=== PATIENT | female | born 1975 | race Caucasian/White ===

== ENCOUNTER 2020-03-31 14:04 | Emergency (ER) | payer OTHER, SELFPAY ==
[2020-03-31] VITALS (7 sets, daily range): BP systolic 137–151; BP diastolic 71–85; PULSE 89–113; RESP 15; TEMP 37.1; O2SAT 97–100; BMI 22.3
[2020-03-31] MEDS: ONDANSETRON 4 MG/2 ML INJ (16:57)
[2020-03-31] MEDS: SODIUM CHLORIDE 0.9% 1,000 ML 1000 ML IV (16:58)
--- NOTE | 2020-03-31 17:16 | ED_ITS ---
HPI - Ear Problem General Chief complaint: Ear Stated complaint: sick for 2 mos, neg covid, poss mono, nausea Time Seen by Provider: 03/31/20 17:14 Source: patient Mode of arrival: Ambulatory Limitations: no limitations History of Present Illness HPI Narrative: This is a 44-year-old female comes emergency department occult complaint of 2 months of symptoms, she states she has had loss of smell and taste, she states she has had 5-COVID test. She states she is possibly positive for mono. She was told she was then, was not then, was and followed by was not. Patient states she has had no fevers or chills. She has had some nasal congestion and left cheek pain. She has not had any swelling or redness. She has had pain in both her ears. She has had a hoarse voice. She has not had any chest pain or pressure but has been short of breath intermittently. She has had nausea and vomiting most days. No diarrhea or constipation. No black or bloody stools. No frequency, dysuria urgency. No vaginal bleeding or discharge. She is not currently on any medications regularly. She denies any recent surgeries. She has multiple antibiotic allergies. Positive for tobacco use, positive for several alcoholic drinks daily, positive for THC, negative for other recreational drugs. Related Data Home Medications Medication Instructions Recorded Confirmed ACETAMINOPHEN (susp) (CHILDREN'S 480 mg #0 02/26/12 TYLENOL) [UNKNOWN EYE DROP] #0 02/26/12 Previous Rx's Medication Instructions Recorded acetaminophen-codeine 5 - 10 ml PO Q6HP PRN #30 ml 12/04/16 tramadol 50 mg PO TID PRN #7 tab 03/31/20 Allergies Allergy/AdvReac Type Severity Reaction Status Date / Time amoxicillin [From AUGMENTIN] Allergy Unknown Verified 03/31/20 14:11 cephalexin [CEPHALEXIN] Allergy Unknown Verified 03/31/20 14:11 clavulanic acid Allergy Unknown Verified 03/31/20 14:11 [From AUGMENTIN] Penicillins [PENICILLINS] Allergy Unknown Verified 03/31/20 14:11 Sulfa (Sulfonamide Allergy Unknown Verified 03/31/20 14:11 Antibiotics) [SULFA (SULFONAMIDE ANTIBIOTICS)] Review of Systems Review of Systems ROS Unobtainable: All systems reviewed & are unremarkable except as noted in HPI and below Patient History Social History Smoking Status: Current every day smoker Smoking Status: Current every day smoker alcohol intake frequency: 3 or more drinks per day Substance Use Type: does not use Exam Narrative Exam Narrative: GEN: well nourished, well appearing female, alert and oriented x 3, patient appears to be in mild distress. HEENT: Atraumatic, pupils are equal round reactive to light, extraocular movements are intact, nares are clear, TMs are clear with no fluid, there is no conjunctival pallor. Throat is clear without any exudates, erythema, tonsillar enlargement or uvular deviation HEART: Regular rate and rhythm without murmur, clicks, rubs. LUNGS:Lungs clear to auscultation, no wheezes, rales, crackles, chest moves symmetrically ABD:bowel sounds normal, soft, positive for mild moderate left upper quadrant tenderness, no guarding, rebound, rigidity, no masses noted, no hepatosplenomegaly, nondistended. :No CVA tenderness MSCL: Non-tender, no muscle atrophy, muscles strength 5/5 upper and lower ex tremities, full range of motion, normal gait NEURO:CN 2-12 intact, sensation normal SKIN: Rash, erythema or other skin changes noted Initial Vital Signs Initial Vital Signs: Vital Signs Temperature 98.7 F 03/31/20 14:11 Pulse Rate 113 H 03/31/20 14:11 Respiratory Rate 15 03/31/20 14:11 Blood Pressure 137/85 03/31/20 14:11 Pulse Oximetry 97 03/31/20 14:11 Course Orders Ordered: ED Orders 03/31/20 16:51 Complete Blood Count AUTO DIFF Stat Comprehensive Metabolic Panel Stat Lipase Stat 03/31/20 17:35 US abdomen complete Stat 03/31/20 17:39 XR chest 1V Stat 03/31/20 18:48 Hepatitis Acute Panel Stat Urine Microscopic Stat Discontinued Medications Acetaminophen/Codeine Phosphate (Codeine/Acetaminophen 30/300 Tablet) 1 tab PO NOW ONE Stop: 03/31/20 17:37 Last Admin: 03/31/20 18:05 Dose: 1 tab Documented by: AUDREY Sodium Chloride (Normal Saline 0.9%) 1,000 mls @ 1,000 mls/hr IV BOLUS ONE Stop: 03/31/20 17:57 Last Infusion: 03/31/20 17:59 Dose: 0 mls/hr Documented by: Admin: 03/31/20 16:58 Dose: 1,000 mls/hr Documented by: AUDREY Potassium Chloride (Potassium Chloride 20 Meq/15 Ml Udc) 40 meq PO NOW ONE Stop: 03/31/20 18:38 Last Admin: 03/31/20 19:12 Dose: 40 meq Documented by: PATEL Vital Signs Vital signs: Vital Signs - 8 hr 03/31/20 14:11 03/31/20 16:34 03/31/20 16:35 Temperature 98.7 F Pulse Rate 113 H Respiratory Rate 15 Blood Pressure 137/85 149/77 H Pulse Oximetry 97 98 03/31/20 17:00 03/31/20 17:04 03/31/20 17:30 Temperature Pulse Rate 99 H 92 H 89 Respiratory Rate Blood Pressure 151/71 H Pulse Oximetry 97 98 99 03/31/20 18:02 Temperature Pulse Rate 93 H Respiratory Rate Blood Pressure Pulse Oximetry 100 Medical Decision Making Lab Data Lab results reviewed: Yes I reviewed the patient's lab results. Result diagrams: 03/31/20 16:51 03/31/20 16:51 Labs: Lab Results 03/31/20 03/31/20 03/31/20 Range/Units 16:51 16:51 18:48 WBC 6.0 (4.5-11.0) X10^3/uL RBC 4.23 (4.0-5.2) X10^6/uL Hgb 14.3 (12.0-16.0) g/dL Hct 42.5 (36-46) % MCV 100.4 H (80-100) fL MCH 33.8 (26-34) PG MCHC 33.7 (30-36) % RDW 14.1 (11.6-14.8) % Plt Count 107 L (150-400) X10^3/uL Neut % (Auto) 64.6 (50-75) % Lymph % (Auto) 26.2 (25-40) % [place] % (Auto) 8.4 (3-14) % Eos % (Auto) 0.4 L (2-4) % Baso % (Auto) 0.4 (0-2) % Neut # (Auto) 3900 (3719-1030) /uL Lymph # (Auto) 1600 (9508-6882) /uL [place] # (Auto) 500 (0-900) /uL Eos # (Auto) 0 (0-450) /uL Baso # (Auto) 0 (0-100) /uL Sodium 137 (137-145) mmol/L Potassium 3.1 L (3.4-5.1) mmol/L Chloride 96 L (98-107) mmol/L Carbon Dioxide 30 (22-32) mmol/L BUN 11 (7-17) mg/dL Creatinine 0.63 (0.52-1.04) mg/dL Estimated GFR > 60.0 (>60) mL/min BUN/Creatinine Ratio 17.5 (6-22) Glucose 140 H (70-100) mg/dL Calcium 9.7 (8.4-10.2) mg/dL Total Bilirubin 0.8 (0.2-1.3) mg/dL AST 507 H (14-36) IU/L ALT 269 H (<35) IU/L Alkaline Phosphatase 124 (38-126) U/L Total Protein 7.7 (6.3-8.2) g/dL Albumin 4.7 (3.5-5.0) g/dL Globulin 3.0 (1.7-4.1) g/dL Albumin/Globulin Ratio 1.6 (1.0-2.8) Lipase 180 (23-300) U/L Urine RBC 10-30/hpf H (0-5/HPF) Urine WBC 1-5/hpf (0-5/HPF) Ur Squamous Epith Cells 10-30 /hpf H (0-5/HPF) Urine Bacteria None seen (None) Urine Mucus 2+ H (Negative) Ur Culture Indicated? Cult not indicated Point of Care Testing Test Results Negative Urine Dip Bedside Urine Glucose Negative Bedside Urine Bilirubin - Negative Bedside Urine Ketone + 15 Urine Specific [place] 1.015 Bedside Urine Occult Blood +++ Bedside Urine pH 7 Bedside Urine Protein ++ 100 Bedside Urine Urobilinogen +/- 1mg Bedside Urine Nitrite - Negative Bedside Urine Leukocytes - Negative Esterase Point of care testing: Point of Care Testing Test Results Negative Urine Dip Bedside Urine Glucose Negative Bedside Urine Bilirubin - Negative Bedside Urine Ketone + 15 Urine Specific [place] 1.015 Bedside Urine Occult Blood +++ Bedside Urine pH 7 Bedside Urine Protein ++ 100 Bedside Urine Urobilinogen +/- 1mg Bedside Urine Nitrite - Negative Bedside Urine Leukocytes - Negative Esterase Imaging Data Chest x-ray: Radiologist's Impression: [address] [id number] ReportSigned Patient: Yaneth Swan R#: [id number]: 1975Acct:[id number]/Sex: 44 / FDate of Service: 03/31/20Loc: EDAccession Number: [id number] Procedure: XR chest 1V Ordering Provider: Veronica Gutiérrez D.O. PROCEDURE: XR CHEST 1V INDICATIONS: cough, multiple symptoms TECHNIQUE: One view of the chest was acquired. COMPARISON: None. FINDINGS: Surgical changes and devices: None. Lungs and pleura: Lungs are clear. No pleural effusions or pneumothorax. Mediastinum: Mediastinal contours appear normal. Heart size is normal. Bones and chest wall: No suspicious bony lesions. Overlying soft tissues appear unremarkable. IMPRESSION: No acute process. Dictated by: Angeli Jiménez M.D. on 03/31/2020 at 18:18 Approved by: Angeli Jiménez M.D. on 03/31/2020 at 18:18 US - abdomen: Radiologist's Impression: [address] [id number] ReportSigned Patient: Yaneth Swan R#: [id number]: 1975Acct:[id number]/Sex: 44 / FDate of Service: 03/31/20Loc: EDAccession Number: [id number] Procedure: US abdomen complete Ordering Provider: Veronica Gutiérrez D.O. PROCEDURE: US ABDOMEN COMPLETE INDICATIONS: ABDOMINAL/LEFT UPPER QUADRANT PAIN WITH NAUSEA. RECENT MONO. TECHNIQUE: Real-time scanning was performed of the abdominal and retroperitoneal organs, with image documentation. COMPARISON: None. FINDINGS: Liver: Liver is normal in size and demonstrates heterogeneously increased echogenicity. Gallbladder: Within normal limits Biliary ducts: Intrahepatic bile ducts are non-dilated. Extrahepatic bile duct caliber measures point mm. Normal is 6-7 mm or less in diameter, or 10 mm or less post-cholecystectomy. Pancreas: Not well seen Spleen: Spleen is normal in size and homogeneous in echotexture. Kidneys: Kidneys are normal in size and echotexture. Right kidney measures 12.4 cm long; left kidney measures 10.2 cm long. No hydronephrosis or nephrolithiasis. No solid masses. Aorta: Visualized aorta is normal in caliber at less than 3 cm. Iliacs: Proximal common iliac arteries are normal in caliber at less than 2.5 cm. IVC: Intrahepatic inferior vena cava is patent. Miscellaneous: No free abdominal fluid. IMPRESSION: 1. No acute process. 2. Hepatic steatosis. Dictated by: Angeli Jiménez M.D. on 03/31/2020 at 18:22 Approved by: Angeli Jiménez M.D. on 03/31/2020 at 18:23 Discharge Plan Departure Patient Disposition: Home Clinical Impression: Hypokalemia, Elevated liver enzymes Activity Restrictions/Additional Instructions: Follow up with primary care physician for recheck. Your potassium was slightly low today, it was replaced here in the emergency department. Your labs show an elevation of your liver enzymes, this may be related to alcohol intake. Hepatitis panel was ordered screening for infectious hepatitis causes but this is a send out lab and will take 1-2 days to return. There are some changes noted on your liver which may be hepatic steatosis or related to your alcohol intake. Would recommend decreasing or stopping alcohol use until you follow up with your physician to clarify your findings. Return to the ER for fevers, persistent vomiting, black or bloody stools, passing, new chest pain, shortness of breath or other new or concerning symptoms. Prescriptions: New tramadol 50 mg tablet 50 mg PO TID PRN (Reason: pain) Qty: 7 RF: 0 No Action [UNKNOWN EYE DROP] Qty: 0 RF: 0 ACETAMINOPHEN (susp) (CHILDREN'S TYLENOL) 480 mg Qty: 0 RF: 0 acetaminophen-codeine 120 MG/12 MG solution 5 - 10 ml PO Q6HP PRNQty: 30 RF: 0
--- NOTE | 2020-03-31 17:35 | DI.US.S_ITS ---
PROCEDURE: US ABDOMEN COMPLETE INDICATIONS: ABDOMINAL/LEFT UPPER QUADRANT PAIN WITH NAUSEA. RECENT MONO. TECHNIQUE: Real-time scanning was performed of the abdominal and retroperitoneal organs, with image documentation. COMPARISON: None. FINDINGS: Liver: Liver is normal in size and demonstrates heterogeneously increased echogenicity. Gallbladder: Within normal limits Biliary ducts: Intrahepatic bile ducts are non-dilated. Extrahepatic bile duct caliber measures point mm. Normal is 6-7 mm or less in diameter, or 10 mm or less post-cholecystectomy. Pancreas: Not well seen Spleen: Spleen is normal in size and homogeneous in echotexture. Kidneys: Kidneys are normal in size and echotexture. Right kidney measures 12.4 cm long; left kidney measures 10.2 cm long. No hydronephrosis or nephrolithiasis. No solid masses. Aorta: Visualized aorta is normal in caliber at less than 3 cm. Iliacs: Proximal common iliac arteries are normal in caliber at less than 2.5 cm. IVC: Intrahepatic inferior vena cava is patent. Miscellaneous: No free abdominal fluid. IMPRESSION: 1. No acute process. 2. Hepatic steatosis. Dictated by: Angeli Jiménez M.D. on 03/31/2020 at 18:22 Approved by: Angeli Jiménez M.D. on 03/31/2020 at 18:23
--- NOTE | 2020-03-31 17:39 | DI.RAD.S_ITS ---
PROCEDURE: XR CHEST 1V INDICATIONS: cough, multiple symptoms TECHNIQUE: One view of the chest was acquired. COMPARISON: None. FINDINGS: Surgical changes and devices: None. Lungs and pleura: Lungs are clear. No pleural effusions or pneumothorax. Mediastinum: Mediastinal contours appear normal. Heart size is normal. Bones and chest wall: No suspicious bony lesions. Overlying soft tissues appear unremarkable. IMPRESSION: No acute process. Dictated by: Angeli Jiménez M.D. on 03/31/2020 at 18:18 Approved by: Angeli Jiménez M.D. on 03/31/2020 at 18:18
[2020-03-31 17:51] LABS: Add Manual Diff / Slide Review NO; Basophils Absolute Auto 0 /uL (0-100); Basophils Percent Auto 0.4 % (0-2); Eosinophils Absolute Auto 0 /uL (0-450); Eosinophils Percent Auto 0.4 % (2-4); Hematocrit 42.5 % (36-46); Hemoglobin 14.3 g/dL (12.0-16.0); Lymphocytes Absolute Auto 1600 /uL (1100-4500); Lymphocytes Percent Auto 26.2 % (25-40); Mean Corpuscular HGB Conc 33.7 % (30-36); Mean Corpuscular Hemoglobin 33.8 PG (26-34); Mean Corpuscular Volume 100.4 fL (80-100); Monocytes Absolute Auto 500 /uL (0-900); Monocytes Percent Auto 8.4 % (3-14); Neutrophils Absolute Auto 3900 /uL (1500-7000); Neutrophils Percent Auto 64.6 % (50-75); Platelet Count 107 X10^3/uL (150-400); Red Blood Cell Count 4.23 X10^6/uL (4.0-5.2); Red Cell Distribution Width 14.1 % (11.6-14.8)
[2020-03-31] MEDS: CODEINE/ACETAMINOPHEN 30/300 TABLET 1 TAB PO (18:05)
[2020-03-31 18:13] LABS: Alanine Aminotransferase 269 IU/L (<35); Albumin 4.7 g/dL (3.5-5.0); Albumin Globulin Ratio 1.6 (1.0-2.8); Alkaline Phosphatase 124 U/L (38-126); Aspartate Aminotransferase 507 IU/L (14-36); BUN Creatinine Ratio 17.5 (6-22); Bilirubin Total 0.8 mg/dL (0.2-1.3); Blood Urea Nitrogen 11 mg/dL (7-17); Calcium 9.7 mg/dL (8.4-10.2); Carbon Dioxide 30 mmol/L (22-32); Chloride 96 mmol/L (98-107); Estimated Glomerular Filt Rate > 60.0 mL/min (>60); Glucose 140 mg/dL (70-100); HEMOLYSIS < 15 (0-50); Lipase 180 U/L (23-300); Potassium 3.1 mmol/L (3.4-5.1); Sodium 137 mmol/L (137-145); Total Protein 7.7 g/dL (6.3-8.2)
[2020-03-31] MEDS: POTASSIUM CHLORIDE 20 MEQ/15 ML UDC 40 MEQ PO (19:12)
[2020-03-31 19:19] LABS: Bacteria Urine None Seen
[2020-03-31 19:45] LABS: Culture Indicated Urine Cult Not Indicated; Mucus Urine 2+ (Negative); RBC Urine 10-30/HPF (0-5/HPF); Squamous Epithelial Cell Urine 10-30 /HPF (0-5/HPF); WBC Urine 1-5/HPF (0-5/HPF)
[2020-04-02 12:42] LABS: HBsAg Screen Negative (Negative); Hepatitis A Antibody IgM Negative (Negative); Hepatitis B Core Antibody IgM Negative (Negative); Hepatitis C Antibody 0.1 s/co ratio (0.0-0.9)
== END 2020-03-31 19:23 | disposition home or self-care (01) ==
PROVIDERS: Emergency Provider Emergency Medicine
DX: E87.6 Hypokalemia (principal); R10.12 Left upper quadrant pain; R74.8 Abnormal levels of other serum enzymes; R11.2 Nausea with vomiting, unspecified; R05 Cough; Z72.0 Tobacco use; F12.90 Cannabis use, unspecified, uncomplicated; Z72.89 Other problems related to lifestyle
CPT/HCPCS: 71045; 76700; 80053; 80074; 81003; 81015; 81025; 83690; 85025; 96361; 96374; 99284; J2405

== ENCOUNTER 2021-08-09 16:10 | Emergency (ER) | payer OTHER, SELFPAY ==
[2021-08-09 16:27] VITALS: BP 153/68; PULSE 61; RESP 16; TEMP 36.7; O2SAT 99; BMI 22.3
[2021-08-09 17:32] LABS: Alanine Aminotransferase 96 IU/L (<35)
--- NOTE | 2021-08-09 17:46 | ED_ITS ---
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 Patient denies any significant pain to the thumb or loss of function states that she was advised by her employer to come to the emergency department for lab work. Denies any fevers, spreading redness, decreased mobility, or any other co ncerning signs or symptoms. Patient is unsure of the medical history of the patient who blood she was exposed to. Related Data Home Medications Medication Instructions Recorded Confirmed ACETAMINOPHEN (susp) (CHILDREN'S 480 mg #0 02/26/12 TYLENOL) [UNKNOWN EYE DROP] #0 02/26/12 Previous Rx's Medication Instructions Recorded acetaminophen 120 mg-codeine 12 5 - 10 ml PO Q6HP PRN #30 ml 12/04/16 mg/5 mL (5 mL) oral solution tramadol 50 mg tablet 50 mg PO TID PRN #7 tab 03/31/20 Allergies Allergy/AdvReac Type Severity Reaction Status Date / Time amoxicillin [From AUGMENTIN] Allergy Unknown Verified 08/09/21 16:33 cephalexin [CEPHALEXIN] Allergy Unknown Verified 08/09/21 16:33 clavulanic acid Allergy Unknown Verified 08/09/21 16:33 [From AUGMENTIN] Penicillins [PENICILLINS] Allergy Unknown Verified 08/09/21 16:33 Sulfa (Sulfonamide Allergy Unknown Verified 08/09/21 16:33 Antibiotics) [SULFA (SULFONAMIDE ANTIBIOTICS)] Review of Systems <SUSANNA Dalal Last Filed: 08/09/21 19:33> Review of Systems Narrative: Positive for left thumb pain Negative for discharge, decreased mobility Patient History <SUSANNA Dalal Last Filed: 08/09/21 19:33> Social History Smoking Status: Current every day smoker Smoking Status: Current every day smoker alcohol intake frequency: a few times a week Substance Use Type: does not use Exam <SUSANNA Dalal Last Filed: 08/09/21 19:33> Narrative Exam Narrative: GENERAL: Well-developed patient, in mild distress. HEAD: Atraumatic. Normocephalic. EYES: Pupils equal round and reactive. Extraocular motions intact. No scleral icterus. No injection or drainage. ENT: Nose without bleeding, purulent drainage. Throat without erythema, tonsillar hypertrophy or exudate. Airway patent. NECK: Trachea midline. Non tender CARDIOVASCULAR: Regular rate and rhythm without murmurs, gallops, or rubs. RESPIRATORY: Clear to auscultation. Breath sounds equal bilaterally. No wheezes, rales, or rhonchi. GASTROINTESTINAL: Abdomen soft, non-tender, nondistended. EXTREMITIES: No edema or joint tenderness. BACK: Nontender without deformity or crepitance. No flank tenderness. NEURO: AOx3. SKIN: Very small pinprick injury to left palmar aspect of thumb. Initial Vital Signs Initial Vital Signs: Vital Signs Temperature 98.0 F 08/09/21 16:27 Pulse Rate 61 08/09/21 16:27 Respiratory Rate 16 08/09/21 16:27 Blood Pressure 153/68 H 08/09/21 16:27 Pulse Oximetry 99 08/09/21 16:27 <DO Halle Petersen Last Filed: 08/10/21 09:06> Initial Vital Signs Initial Vital Signs: Vital Signs Temperature 98.0 F 08/09/21 16:27 Pulse Rate 61 08/09/21 16:27 Respiratory Rate 16 08/09/21 16:27 Blood Pressure 153/68 H 08/09/21 16:27 Pulse Oximetry 99 08/09/21 16:27 Course <SUSANNA Dalal Last Filed: 08/09/21 19:33> Vital Signs Vital signs: Vital Signs - 8 hr 08/09/21 16:27 Temperature 98.0 F Pulse Rate 61 Respiratory Rate 16 Blood Pressure 153/68 H Pulse Oximetry 99 <DO Halle Petersen Last Filed: 08/10/21 09:06> Vital Signs Vital signs: Vital Signs - 8 hr 08/09/21 16:27 Temperature 98.0 F Pulse Rate 61 Respiratory Rate 16 Blood Pressure 153/68 H Pulse Oximetry 99 Medical Decision Making <SUASNNA Dalal Last Filed: 08/09/21 19:33> Lab Data Labs: Lab Results 08/09/21 08/09/21 Range/Units 16:50 16:50 ALT 96 H (<35) IU/L Hep Bs Antigen Negative (NEGATIVE) s/c Hepatitis C Antibody Negative (NEGATIVE) s/c HIV 1&2 Ab/P24 Ag 4thGn Negative (NEGATIVE) MDM Narrative Medical decision making narrative: This is a 45-year-old female presents to the emergency department due to a needlestick injury. Exposure panel ordered. Shared decision making was utilized and informed patient of low likelihood of blood borne illness transmission due to nature of injury and patient declined HIV prophylaxis or other treatment at this time. Patient was eager to go home and will call patient with results of testing once available which were all negative and patient was informed. Liver enzymes elevated although appears to be improved and chronic. <Mai Keen, DO - Last Filed: 08/10/21 09:06> Lab Data Labs: Lab Results 08/09/21 08/09/21 Range/Units 16:50 16:50 ALT 96 H (<35) IU/L Hep Bs Antigen Negative (NEGATIVE) s/c Hepatitis C Antibody Negative (NEGATIVE) s/c HIV 1&2 Ab/P24 Ag 4thGn Negative (NEGATIVE) Discharge Plan Departure Patient Disposition: Home Clinical Impression: Needlestick injury accident Instructions: DI for Accidental Exposure to Body Fluids Activity Restrictions/Additional Instructions: Thank you for coming to the [facility] Emergency Department today. As we di scussed I will call you if any of your lab work comes back abnormal. I am sorry that this happened to you. As we discussed the sides of you yana and blood borne illness or very low with this kind of injury. You may follow-up with the primary care provider if you become interested in any kind of treatment. I recommended to attempt to follow-up with the patient whose body fluid your exposed to to check if they have any kind of blood borne diseases. You May contact the emergency department if she needs any of your results in paper form. I hope you feel better soon. Prescriptions: No Action [UNKNOWN EYE DROP] Qty: 0 0RF ACETAMINOPHEN (susp) (CHILDREN'S TYLENOL) 480 mg Qty: 0 0RF acetaminophen-codeine 120 MG/12 MG solution 5 - 10 ml PO Q6HP PRNQty: 30 0RF tramadol 50 mg tablet 50 mg PO TID PRN (Reason: pain) Qty: 7 0RF <Mai Keen, DO - Last Filed: 08/10/21 09:06> Cosign ED Attending Cosignature Attestation: I was immediately available in the department for consultation. Documentation has been reviewed. I agree with assessment and plan.
[2021-08-09 18:07] LABS: Hepatitis B Surface Antigen NEGATIVE s/c (NEGATIVE)
[2021-08-09 18:30] LABS: HIV 1 & 2 Ab/Ag 4th Gen Combo NEGATIVE (NEGATIVE); Hep C Virus Ab w/Reflex Quant NEGATIVE s/c (NEGATIVE)
[2021-08-11 12:31] LABS: Hepatitis B Surf Ab Qualitativ Reactive (.)
== END 2021-08-09 18:05 | disposition home or self-care (01) ==
PROVIDERS: Emergency Medicine; Emergency Provider Physician Assistant Medical
DX: Z77.21 Contact with and (suspected) exposure to potentially hazardous body fluids (principal); S69.92XA Unspecified injury of left wrist, hand and finger(s), initial encounter; W46.1XXA Contact with contaminated hypodermic needle, initial encounter; Y99.0 Civilian activity done for income or pay
CPT/HCPCS: 36415; 84460; 86706; 86803; 87340; 87389; 99281; 99283

== ENCOUNTER 2021-12-23 18:08 | Emergency (ER) | payer OTHER, MEDICAID, SELFPAY ==
[2021-12-23] VITALS (10 sets, daily range): BP systolic 101–134; BP diastolic 51–76; PULSE 86–119; RESP 22; TEMP 36.6; O2SAT 91–97
--- NOTE | 2021-12-23 18:34 | ED.ABDPAIN ---
HPI - Abdominal Pain General Chief Complaint: Abdominal Pain Stated Complaint: Can't smell, Hard to breath, multiple COVID test - Time Seen by Provider: 12/23/21 18:23 Source: patient Mode of arrival: Wheelchair History of Present Illness HPI narrative: Patient is a 46-year-old female who denies any medical history but reports a recent stay at [facility] in the ICU without being intubated, records are being requested, presents today with abdominal pain generalized weakness. She feels like her nose is quite congested she can not smell or taste. Her ears keep popping. She denies any headache. She certainly has a hoarse voice, but denies any throat pain. She states that she is not able to eat or drink very much he she is having abdominal pain. She admits to having alcohol use more so than she usually does case she has some depression. She says that she drinks about 6 shots of whiskey throughout the day. But is eating very much. She is having some abdominal pain. She reports decreased urine output. According to our records here in 2020 she also reported loss of taste and smell and had elevated liver enzymes. She complains of lower abdominal pain normal bowel movements no vomiting Related Data Home Medications Medication Instructions Recorded Confirmed ACETAMINOPHEN (susp) (CHILDREN'S 480 mg ##0 02/26/12 TYLENOL) [UNKNOWN EYE DROP] ##0 02/26/12 Previous Rx's Medication Instructions Recorded triamcinolone acetonide 0.1 % 1 applic topical TID #80 grams 09/10/21 topical ointment Allergies Allergy/AdvReac Type Severity Reaction Status Date / Time amoxicillin [From AUGMENTIN] Allergy Unknown Verified 08/09/21 16:33 cephalexin [CEPHALEXIN] Allergy Unknown Verified 08/09/21 16:33 clavulanic acid Allergy Unknown Verified 08/09/21 16:33 [From AUGMENTIN] Penicillins [PENICILLINS] Allergy Unknown Verified 08/09/21 16:33 Sulfa (Sulfonamide Allergy Unknown Verified 08/09/21 16:33 Antibiotics) [SULFA (SULFONAMIDE ANTIBIOTICS)] Review of Systems Review of Systems Narrative: GENERAL: Denies chills, fatigue, malaise, fever, sweats, travel HEENT: Denies sinus pain, ear pain, sore throat, difficulty swallowing, neck pain RESPIRATORY: Denies dyspnea, cough, wheezing, hemoptysis, sputum. CARDIOVASCULAR: Denies chest pain, palpitations, orthopnea, edema GASTROINTESTINAL: Abdominal pain : Denies dysuria, frequency, incontinence, hematuria, urinary retention, flank pain. MUSCULOSKELETAL: Denies weakness, joint pain, or bony pain SKIN: No rash, no erythema, no pruritus NEUROLOGIC: Denies weakness, dizziness, headache, numbness, change in speech, confusion PSYCHIATRIC: No concerning psychosocial issues. 12 point review of systems is negative except for those stated above and HPI Patient History Social History Smoking Status: Current every day smoker Smoking Status: Current every day smoker alcohol intake frequency: 3 or more drinks per day Substance Use Type: does not use Exam Initial Vital Signs Initial Vital Signs: Vital Signs Temperature 97.9 F 12/23/21 18:13 Pulse Rate 119 H 12/23/21 18:13 Respiratory Rate 22 12/23/21 18:13 Blood Pressure 134/73 12/23/21 18:13 Pulse Oximetry 95 12/23/21 18:13 Oxygen Delivery Method 12/23/21 18:13 GENERAL: Alert 42-year-old female appears slightly ulnar HEENT: Head atraumatic,EOMI, pupils reactive, face symmetric, moist mucous membranes CARDIOVASCULAR: Regular rate and rhythm without murmurs, rubs or gallops. RESPIRATORY: Breath sounds equal bilaterally, no wheezes rales or rhonchi. ABDOMEN: Soft, mild lower abdominal pain no guarding no rebound : No CVA tenderness EXTREMITIES: Normal range of motion, no clubbing or edema. Neurovascularly intact NEUROLOGICAL: Alert and oriented x4.Normal gait and speech. SKIN: Warm, dry, no laceration, no petechiae, no rashes or lesions. Course Orders Ordered: ED Orders 12/23/21 18:18 EKG-12 Lead Stat 12/23/21 18:25 Complete Blood Count AUTO DIFF Stat Comprehensive Metabolic Panel Stat ETOH [Ethanol (ETOH)] Stat Lipase Stat Test Serum,Qual Stat 12/23/21 19:19 CT abdomen pelvis w con Stat US abdomen limited Stat 12/23/21 19:43 Urine Drug Screen, Rapid Stat Urine Microscopic Stat Discontinued Medications Sodium Chloride (Normal Saline 0.9%) 1,000 mls @ 150 mls/hr IV CONT MOSES Last Infusion: 12/24/21 00:33 Dose: 0 mls/hr Documented By: Admin: 12/23/21 18:43 Dose: 150 mls/hr Documented By: GIA Pantoprazole Sodium (Pantoprazole 40 Mg Vial) 40 mg IV NOW ONE Stop: 12/23/21 19:20 Last Admin: 12/23/21 19:23 Dose: 40 mg Documented By: GIA Vital Signs Vital signs: Vital Signs - 8 hr 12/23/21 18:13 12/23/21 18:48 12/23/21 18:49 Temperature 97.9 F Pulse Rate 119 H 106 H Respiratory Rate 22 Blood Pressure 134/73 Pulse Oximetry 95 94 95 Oxygen Delivery Method Room Air 12/23/21 18:49 12/23/21 19:00 12/23/21 19:00 Temperature Pulse Rate 95 H Respiratory Rate Blood Pressure 123/76 101/64 Pulse Oximetry 93 Oxygen Delivery Method 12/23/21 19:30 12/23/21 20:50 12/23/21 20:50 Temperature Pulse Rate 92 H 89 Respiratory Rate Blood Pressure 102/51 L Pulse Oximetry 96 93 Oxygen Delivery Method 12/23/21 21:00 12/23/21 21:30 12/23/21 22:00 Temperature Pulse Rate 90 93 H Respiratory Rate Blood Pressure 112/57 L Pulse Oximetry 92 91 Oxygen Delivery Method 12/23/21 22:00 12/23/21 22:30 12/23/21 22:30 Temperature Pulse Rate 97 H 86 Respiratory Rate Blood Pressure 105/58 L Pulse Oximetry 92 97 Oxygen Delivery Method Room Air MDM - Abdominal Pain Differential Diagnosis Differential diagnosis: Likely acute appendicitis, calculus of kidney, diverticulitis, gastroenteritis, pancreatitis and small bowel obstruction Lab Data Result diagrams: 12/23/21 18:25 12/23/21 18:25 Labs: Lab Results 12/23/21 12/23/21 12/23/21 Range/Units 18:25 18:25 18:25 WBC 5.5 (4.5-11.0) X10^3/uL RBC 4.29 (4.0-5.2) X10^6/uL Hgb 15.2 (12.0-16.0) g/dL Hct 43.8 (36-46) % MCV 102.2 H (80-100) fL MCH 35.5 H (26-34) PG MCHC 34.7 (30-36) % RDW 14.1 (11.6-14.8) % Plt Count 168 (150-400) X10^3/uL Neut % (Auto) 43.0 L (50-75) % Lymph % (Auto) 47.4 H (25-40) % [place] % (Auto) 7.3 (3-14) % Eos % (Auto) 0.7 L (2-4) % Baso % (Auto) 1.6 (0-2) % Neut # (Auto) 2400 (1956-9947) /uL Lymph # (Auto) 2600 (6582-6700) /uL [place] # (Auto) 400 (0-900) /uL Eos # (Auto) 0 (0-450) /uL Baso # (Auto) 100 (0-100) /uL Sodium 143 (137-145) mmol/L Potassium 4.0 (3.4-5.1) mmol/L Chloride 101 (98-107) mmol/L Carbon Dioxide 22 (22-32) mmol/L BUN 8 (7-17) mg/dL Creatinine 0.60 (0.52-1.04) mg/dL Estimated GFR > 60 (>60) mL/min BUN/Creatinine Ratio 13.3 (6-22) Glucose 99 (70-100) mg/dL Calcium 9.2 (8.4-10.2) mg/dL Total Bilirubin 1.1 (0.2-1.3) mg/dL AST 269 H (14-36) IU/L ALT 116 H (<35) IU/L Alkaline Phosphatase 198 H (38-126) U/L Total Protein 8.8 H (6.3-8.2) g/dL Albumin 5.1 H (3.5-5.0) g/dL Globulin 3.7 (1.7-4.1) g/dL Albumin/Globulin Ratio 1.4 (1.0-2.8) Lipase 104 (23-300) U/L Serum , Qual (Negative) Urine RBC (0-5/HPF) Urine WBC (0-5/HPF) Ur Squamous Epith Cells (0-5/HPF) Urine Bacteria (None) Ur Culture Indicated? U Opiates 300ng/mL cut (Negative) Ur Oxycodone Screen (Negative) Urine Methadone Screen (Negative) Ur Barbiturates Screen (Negative) U Tricyclic Antidepress (Negative) Ur Phencyclidine Scrn (Negative) Ur Amphetamines Screen (Negative) U Methamphetamines Scrn (Negative) Ur MDMA Scrn (Ecstasy) (Negative) U Benzodiazepines Scrn (Negative) Urine Cocaine Screen (Negative) U Marijuana (THC) Screen (Negative) Ethyl Alcohol 419 H* ( - 10) mg/dL 12/23/21 12/23/21 12/23/21 Range/Units 18:25 19:43 19:43 WBC (4.5-11.0) X10^3/uL RBC (4.0-5.2) X10^6/uL Hgb (12.0-16.0) g/dL Hct (36-46) % MCV (80-100) fL MCH (26-34) PG MCHC (30-36) % RDW (11.6-14.8) % Plt Count (150-400) X10^3/uL Neut % (Auto) (50-75) % Lymph % (Auto) (25-40) % [place] % (Auto) (3-14) % Eos % (Auto) (2-4) % Baso % (Auto) (0-2) % Neut # (Auto) (1356-1460) /uL Lymph # (Auto) (1967-1754) /uL [place] # (Auto) (0-900) /uL Eos # (Auto) (0-450) /uL Baso # (Auto) (0-100) /uL Sodium (137-145) mmol/L Potassium (3.4-5.1) mmol/L Chloride (98-107) mmol/L Carbon Dioxide (22-32) mmol/L BUN (7-17) mg/dL Creatinine (0.52-1.04) mg/dL Estimated GFR (>60) mL/min BUN/Creatinine Ratio (6-22) Glucose (70-100) mg/dL Calcium (8.4-10.2) mg/dL Total Bilirubin (0.2-1.3) mg/dL AST (14-36) IU/L ALT (<35) IU/L Alkaline Phosphatase (38-126) U/L Total Protein (6.3-8.2) g/dL Albumin (3.5-5.0) g/dL Globulin (1.7-4.1) g/dL Albumin/Globulin Ratio (1.0-2.8) Lipase (23-300) U/L Serum , Qual Negative (Negative) Urine RBC 1-5/hpf D (0-5/HPF) Urine WBC 0-1/hpf (0-5/HPF) Ur Squamous Epith Cells 5-10 /hpf H (0-5/HPF) Urine Bacteria None seen (None) Ur Culture Indicated? Cult not indicated U Opiates 300ng/mL cut Negative (Negative) Ur Oxycodone Screen Negative (Negative) Urine Methadone Screen Negative (Negative) Ur Barbiturates Screen Negative (Negative) U Tricyclic Antidepress Negative (Negative) Ur Phencyclidine Scrn Negative (Negative) Ur Amphetamines Screen Negative (Negative) U Methamphetamines Scrn Negative (Negative) Ur MDMA Scrn (Ecstasy) Negative (Negative) U Benzodiazepines Scrn Positive H (Negative) Urine Cocaine Screen Negative (Negative) U Marijuana (THC) Screen Negative (Negative) Ethyl Alcohol ( - 10) mg/dL Point of care testing: Point of Care Testing Test Results Negative Urine Dip Bedside Urine Glucose Negative Bedside Urine Bilirubin - Negative Bedside Urine Ketone - Negative Urine Specific [place] 1.025 Bedside Urine Occult Blood + Bedside Urine pH 6.0 Bedside Urine Protein + 30 Bedside Urine Urobilinogen - Negative Bedside Urine Nitrite - Negative Bedside Urine Leukocytes - Negative Esterase Imaging Data CT scan - abdomen/pelvis: Radiologist's Impression: Signed Patient: Yaneth Swan V MR#: [id number] : 1975 Acct:[id number] Age/Sex: 46 / F Date of Service: 12/23/21 Loc: ED Accession Number: [id number] ?? Procedure: CT abdomen pelvis w con Ordering Provider: Mai Keen D.O. PROCEDURE:? CT ABDOMEN PELVIS W CON ? INDICATIONS:? ab pain ? TECHNIQUE:? After the administration of IV contrast, axial sections were acquired from the lung bases to the pubic symphysis.? Coronal and sagittal reformats were performed.? For radiation dose reduction, the following was used:? automated exposure control, adjustment of mA and/or kV according to patient size. ? COMPARISON:? [facility], CT, CT ABDOMEN PELVIS WITH CONTRAST, 10/15/2021, 4:35.? [facility], CT, CT ABDOMEN PELVIS WITH CONTRAST, 12/07/2021, 23:56. ? FINDINGS:? Image quality:? Excellent.? ? Lung bases:? Unremarkable.? ? Heart:? Heart is normal in size. ? ? ABDOMEN: Liver:? There is marked hypoattenuation of the liver consistent with fatty infiltration. Gallbladder:? Within normal limits without calcified gallstones.? ? Biliary ducts:? No biliary ductal dilatation.? ? Pancreas:? Unremarkable.? ? Spleen:? Normal in size.? ? Adrenal Glands:? No adrenal nodules.? ? Kidneys and Ureters:? No hydronephrosis.? ? ? Stomach and Bowel:? Stomach, small bowel loops, and colon are normal in caliber and wall thickness.? The appendix is normal in appearance.? Peritoneum:? No abnormal intraperitoneal fluid.? No free air.? ? Ventral Wall: ? No hernia.? Abdominal Nodes:? No retroperitoneal or mesenteric adenopathy by size criteria.? Vessels:? Aorta and inferior vena cava are normal in size.? ? PELVIS: Pelvic Organs:? There is an Essure device within the left aspect of the uterus. Bladder:? Unremarkable.? ? Pelvic Nodes: No enlarged lymph nodes.? Miscellaneous: No inguinal hernias are seen. ? ? ? Bones:? Visualized osseous structures demonstrate no suspicious focal lesions. ? IMPRESSION:? ? 1.? No definite acute intra-abdominal abnormality. ? 2. Marked hepatic steatosis redemonstrated.? ? ? Dictated by: Konstantin Longo M.D. on 12/23/2021 at 20:34 ? ? US - abdomen: Radiologist's Impression: Yaneth Swan V MR#: [id number] : 1975 Acct:[id number] Age/Sex: 46 / F Date of Service: 12/23/21 Loc: ED Accession Number: [id number] ?? Procedure: US abdomen limited Ordering Provider: Mai Keen D.O. PROCEDURE: US ABDOMEN LIMITED ? INDICATIONS:? ELEVATED LFTS ? TECHNIQUE:? Real-time focused scanning was performed of the abdomen, with image documentation.? ? COMPARISON:? [facility], CT, CT ABDOMEN PELVIS W CON, 12/23/2021, 19:27.? [facility], US, US ABDOMEN COMPLETE, 03/16/2021, 15:42.? [facility], US, US ABDOMEN COMPLETE, 03/31/2020, 17:49. ? FINDINGS:? ? The liver demonstrates marked increased echogenicity consistent with severe fatty infiltration. ? Gallbladder demonstrates no stones, wall thickening, or pericholecystic fluid. ? No intra or extrahepatic biliary ductal dilatation. ? Pancreas was not well seen due to bowel gas. ? IMPRESSION:? ? 1.? No evidence of cholelithiasis or cholecystitis. ? 2. No biliary ductal dilatation.? ? ? Dictated by: Konstantin Longo M.D. on 12/23/2021 at 20:47 ? ? ECG Data Interpretation: Sinus tachycardia rate 95 W[place] interval 156 QRS [address] changes MDM Narrative Medical decision making narrative: Patient is found to be quite intoxicated with alcohol of 419. She does have elevated enzymes as well but no elevated bilirubin she also is not tender in her right upper quadrant. Nonetheless both CT and ultrasound are done in do not show any dilation of CbD, but do show hepatic steatosis. No cause of her abdominal pain is found today. She has no complaints of bleeding. She actually fell asleep in the ED for couple of hours. At this time no indication for admission. Records received from [facility] for only nursing notes. I never received any provider nose. It does appear that she was there for alcohol related issues. She was also breath [facility] where she inquired about detox but it does not appear that she went to detox at that time. Discharge Plan Departure Patient Disposition: Home Clinical Impression: Alcohol intoxication Instructions: DI for Alcohol Use Disorder Activity Restrictions/Additional Instructions: *You have been diagnosed with alcohol intoxication *What to do: At this time unclear what is causing her abdominal pain. However alcohol is not helping. To not stop drinking alcohol without supervision *Continue to take medications as directed *Follow up with your primary care provider in 2-3 days or call [phone] *Return to ER if you should have any new, worsening or concerning symptoms Prescriptions: No Action triamcinolone acetonide 0.1 % ointment 1 applic topical TID Qty: 80 0RF [UNKNOWN EYE DROP] Qty: 0 ACETAMINOPHEN (susp) (CHILDREN'S TYLENOL) 480 mg Qty: 0 Referrals: Miscellaneous,DoctorMD [Primary Care Provider] - Visit Report Forms: Patient Portal/API
[2021-12-23] MEDS: SODIUM CHLORIDE 0.9% 1,000 ML 150 ML IV (18:43)
[2021-12-23 18:44] LABS: Add Manual Diff / Slide Review NO; Basophils Absolute Auto 100 /uL (0-100); Basophils Percent Auto 1.6 % (0-2); Eosinophils Absolute Auto 0 /uL (0-450); Eosinophils Percent Auto 0.7 % (2-4); Hematocrit 43.8 % (36-46); Hemoglobin 15.2 g/dL (12.0-16.0); Lymphocytes Absolute Auto 2600 /uL (1100-4500); Lymphocytes Percent Auto 47.4 % (25-40); Mean Corpuscular HGB Conc 34.7 % (30-36); Mean Corpuscular Hemoglobin 35.5 PG (26-34); Mean Corpuscular Volume 102.2 fL (80-100); Monocytes Absolute Auto 400 /uL (0-900); Monocytes Percent Auto 7.3 % (3-14); Neutrophils Absolute Auto 2400 /uL (1500-7000); Platelet Count 168 X10^3/uL (150-400); Red Blood Cell Count 4.29 X10^6/uL (4.0-5.2); Red Cell Distribution Width 14.1 % (11.6-14.8); White Blood Cell Count 5.5 X10^3/uL (4.5-11.0)
[2021-12-23 19:06] LABS: Alanine Aminotransferase 116 IU/L (<35); Albumin 5.1 g/dL (3.5-5.0); Albumin Globulin Ratio 1.4 (1.0-2.8); BUN Creatinine Ratio 13.3 (6-22); Bilirubin Total 1.1 mg/dL (0.2-1.3); Blood Urea Nitrogen 8 mg/dL (7-17); Calcium 9.2 mg/dL (8.4-10.2); Carbon Dioxide 22 mmol/L (22-32); Chloride 101 mmol/L (98-107); Estimated Glomerular Filt Rate > 60 mL/min (>60); Globulin 3.7 g/dL (1.7-4.1); Glucose 99 mg/dL (70-100); Lipase 104 U/L (23-300); Sodium 143 mmol/L (137-145); Total Protein 8.8 g/dL (6.3-8.2)
[2021-12-23 19:07] LABS: Ethanol (ETOH) 419 mg/dL; HEMOLYSIS 87 (0-50)
[2021-12-23 19:09] LABS: Alkaline Phosphatase 198 U/L (38-126); Aspartate Aminotransferase 269 IU/L (14-36)
--- NOTE | 2021-12-23 19:19 | DI.CT.S_ITS ---
PROCEDURE: CT ABDOMEN PELVIS W CON INDICATIONS: ab pain TECHNIQUE: After the administration of IV contrast, axial sections were acquired from the lung bases to the pubic symphysis. Coronal and sagittal reformats were performed. For radiation dose reduction, the following was used: automated exposure control, adjustment of mA and/or kV according to patient size. COMPARISON: [facility], CT, CT ABDOMEN PELVIS WITH CONTRAST, 10/15/2021, 4:35. [facility], CT, CT ABDOMEN PELVIS WITH CONTRAST, 12/07/2021, 23:56. FINDINGS: Image quality: Excellent. Lung bases: Unremarkable. Heart: Heart is normal in size. ABDOMEN: Liver: There is marked hypoattenuation of the liver consistent with fatty infiltration. Gallbladder: Within normal limits without calcified gallstones. Biliary ducts: No biliary ductal dilatation. Pancreas: Unremarkable. Spleen: Normal in size. Adrenal Glands: No adrenal nodules. Kidneys and Ureters: No hydronephrosis. Stomach and Bowel: Stomach, small bowel loops, and colon are normal in caliber and wall thickness. The appendix is normal in appearance. Peritoneum: No abnormal intraperitoneal fluid. No free air. Ventral Wall: No hernia. Abdominal Nodes: No retroperitoneal or mesenteric adenopathy by size criteria. Vessels: Aorta and inferior vena cava are normal in size. PELVIS: Pelvic Organs: There is an Essure device within the left aspect of the uterus. Bladder: Unremarkable. Pelvic Nodes: No enlarged lymph nodes. Miscellaneous: No inguinal hernias are seen. Bones: Visualized osseous structures demonstrate no suspicious focal lesions. IMPRESSION: 1. No definite acute intra-abdominal abnormality. 2. Marked hepatic steatosis redemonstrated. Dictated by: Konstantin Longo M.D. on 12/23/2021 at 20:34 Approved by: Konstantin Lonog M.D. on 12/23/2021 at 20:40
--- NOTE | 2021-12-23 19:19 | DI.US.S_ITS ---
PROCEDURE: US ABDOMEN LIMITED INDICATIONS: ELEVATED LFTS TECHNIQUE: Real-time focused scanning was performed of the abdomen, with image documentation. COMPARISON: [facility], CT, CT ABDOMEN PELVIS W CON, 12/23/2021, 19:27. [facility], US, US ABDOMEN COMPLETE, 03/16/2021, 15:42. [facility], US, US ABDOMEN COMPLETE, 03/31/2020, 17:49. FINDINGS: The liver demonstrates marked increased echogenicity consistent with severe fatty infiltration. Gallbladder demonstrates no stones, wall thickening, or pericholecystic fluid. No intra or extrahepatic biliary ductal dilatation. Pancreas was not well seen due to bowel gas. IMPRESSION: 1. No evidence of cholelithiasis or cholecystitis. 2. No biliary ductal dilatation. Dictated by: Konstantin Longo M.D. on 12/23/2021 at 20:47 Approved by: Konstantin Longo M.D. on 12/23/2021 at 20:48
[2021-12-23] MEDS: PANTOPRAZOLE 40 MG VIAL IV (19:23)
[2021-12-23 19:51] LABS: Pregnancy Test Serum,Qual Negative (Negative)
[2021-12-23 20:10] LABS: UR Morphine/Opiate cutoff 300 Negative (Negative); Ur Creatinine Normal (Normal); Ur Specific Gravity Normal (Normal); Urine Amphetamines Negative (Negative); Urine Barbiturates Negative (Negative); Urine Benzodiazepines Positive (Negative); Urine Cocaine Negative (Negative); Urine MDMA Negative (Negative); Urine Methadone Negative (Negative); Urine Methamphetamines Negative (Negative); Urine Oxycodone Negative (Negative); Urine Phencyclidine Negative (Negative); Urine Tetrahydrocannabinol Negative (Negative); Urine Tricyclic Antidepressant Negative (Negative); Urine pH Normal (Normal)
[2021-12-23 20:32] LABS: Bacteria Urine None Seen; Culture Indicated Urine Cult Not Indicated; RBC Urine 1-5/HPF (0-5/HPF); Squamous Epithelial Cell Urine 5-10 /HPF (0-5/HPF); WBC Urine 0-1/HPF (0-5/HPF)
== END 2021-12-24 00:38 | disposition home or self-care (01) ==
PROVIDERS: Emergency Medicine; Emergency Provider Emergency Medicine
DX: F10.129 Alcohol abuse with intoxication, unspecified (principal); Y90.8 Blood alcohol level of 240 mg/100 ml or more; R10.11 Right upper quadrant pain
CPT/HCPCS: 36415; 74177; 76705; 80053; 80305; 80320; 81003; 81015; 81025; 83690; 84703; 85025; 93005; 96361; 96374; 99284; C9113

== ENCOUNTER 2022-09-10 16:30 | Emergency (ER) | payer OTHER, MEDICAID, SELFPAY ==
[2022-09-10 16:52] VITALS: BP 115/56; PULSE 89; RESP 16; TEMP 36.8; O2SAT 99; BMI 22.4
--- NOTE | 2022-09-10 18:38 | ED.NAVMDI ---
HPI - Nausea/Vomiting/Diarrhea General Chief complaint: Nausea/Vomiting/Diarrhea Stated complaint: Vomiting 2 days, headache, back pain Time Seen by Provider: 09/10/22 18:22 Source: patient Mode of arrival: Ambulatory History of Present Illness HPI Narrative: Patient is a 46-year-old female who is here for evaluation of 2 days of vomiting, also lower abdominal pain. States she feels dehydrated. Also is having a headache. Was seen in outside facility yesterday. Received fluids and nausea medication. Was given a prescription for nausea medicine but has not picked it up. States that she continues to have vomiting throughout the day today. Related Data Home Medications Medication Instructions Recorded Confirmed ACETAMINOPHEN (susp) (CHILDREN'S 480 mg ##0 02/26/12 TYLENOL) [UNKNOWN EYE DROP] ##0 02/26/12 Previous Rx's Medication Instructions Recorded triamcinolone acetonide 0.1 % 1 applic topical TID #80 grams 09/10/21 topical ointment Allergies Allergy/AdvReac Type Severity Reaction Status Date / Time amoxicillin [From AUGMENTIN] Allergy Unknown Verified 08/09/21 16:33 cephalexin [CEPHALEXIN] Allergy Unknown Verified 08/09/21 16:33 clavulanic acid Allergy Unknown Verified 08/09/21 16:33 [From AUGMENTIN] Penicillins [PENICILLINS] Allergy Unknown Verified 08/09/21 16:33 Sulfa (Sulfonamide Allergy Unknown Verified 08/09/21 16:33 Antibiotics) [SULFA (SULFONAMIDE ANTIBIOTICS)] Review of Systems Constitutional Constitutional: Reports system reviewed and no additional complaints, except as documented Gastrointestinal Gastrointestinal: Reports system reviewed and no additional complaints, except as documented Genitourinary Genitourinary: Reports system reviewed and no additional complaints, except as documented Musculoskeletal Musculoskeletal: Reports system reviewed and no additional complaints, except as documented Integumentary/Breasts Skin/Breast: Reports system reviewed and no additional complaints, except as documented Hematologic/Lymphatic On Anticoagulants: No Patient History Social History Smoking Status: Current every day smoker Smoking Status: Current every day smoker alcohol intake frequency: 3 or more drinks per day Substance Use Type: marijuana Exam Initial Vital Signs Initial Vital Signs: Vital Signs Temperature 98.2 F 09/10/22 16:52 Pulse Rate 89 09/10/22 16:52 Respiratory Rate 16 09/10/22 16:52 Blood Pressure 115/56 L 09/10/22 16:52 Pulse Oximetry 99 09/10/22 16:52 Oxygen Delivery Method Room Air 09/10/22 16:52 Const General: cooperative, comfortable and No ill appearing [facility] Head: normal to inspection Resp Effort & Inspection: normal respiratory effort Cardio Rate: regular rate GI Inspection: normal to inspection and non-distended Palpation: tender Neuro General: patient alert, patient awake and moves all extremities Extrem General: normal to inspection and capillary refill normal Course Orders Ordered: ED Orders 09/10/22 18:26 CMP [Comprehensive Metabolic Panel] Stat Complete Blood Count AUTO DIFF Stat ETOH [Ethanol (ETOH)] Stat Lipase Stat Test Serum,Qual Stat 09/10/22 19:20 Urine Culture Stat Urine Microscopic Stat Discontinued Medications Sodium Chloride (Normal Saline 0.9%) 1,000 mls @ 1,000 mls/hr IV BOLUS ONE Stop: 09/10/22 19:37 Last Infusion: 09/10/22 20:04 Dose: 0 mls/hr Documented By: Admin: 09/10/22 19:03 Dose: 1,000 mls/hr Documented By: CATHERINE Ketorolac Tromethamine (Ketorolac 30 Mg/Ml Vial) 30 mg IV NOW ONE Stop: 09/10/22 18:39 Last Admin: 09/10/22 19:04 Dose: 30 mg Documented By: CATHERINE Ondansetron HCl (Ondansetron 4 Mg Odt) 4 mg SL NOW PRN PRN Reason: Nausea And Vomiting Ondansetron HCl (Ondansetron 4 Mg/2 Ml Inj) 4 mg IV NOW PRN PRN Reason: Nausea And Vomiting Last Admin: 09/10/22 19:04 Dose: 4 mg Documented By: CATHERINE Ondansetron HCl (Ondansetron 4 Mg Odt Prepack) 1 bottle MISC SEEINSTR ONE Stop: 09/10/22 20:41 Last Admin: 09/10/22 20:46 Dose: 1 bottle Documented By: DARLYN Pantoprazole Sodium (Pantoprazole 40 Mg Vial) 40 mg IV NOW ONE Stop: 09/10/22 19:34 Last Admin: 09/10/22 20:00 Dose: 40 mg Documented By: DARLYN Vital Signs Vital signs: Vital Signs - 8 hr 09/10/22 20:04 Pulse Rate 69 Respiratory Rate 18 Blood Pressure 130/64 Pulse Oximetry 100 Oxygen Delivery Method Room Air MDM - Nausea/Vomiting/Diarrhea Lab Data Attestation: I reviewed the patient's lab results. 09/10/22 18:26 09/10/22 18:26 Labs: Lab Results 09/10/22 09/10/22 09/10/22 Range/Units 18:26 18:26 18:26 WBC 9.5 (4.5-11.0) X10^3/uL RBC 4.61 (4.0-5.2) X10^6/uL Hgb 14.5 (12.0-16.0) g/dL Hct 42.1 (36-46) % MCV 91.3 (80-100) fL MCH 31.4 (26-34) PG MCHC 34.4 (30-36) % RDW 13.3 (11.6-14.8) % Plt Count 275 (150-400) X10^3/uL Neut % (Auto) 66.0 (50-75) % Lymph % (Auto) 29.2 (25-40) % [place] % (Auto) 3.6 (3-14) % Eos % (Auto) 0.5 L (2-4) % Baso % (Auto) 0.7 (0-2) % Neut # (Auto) 6300 (5553-5897) /uL Lymph # (Auto) 2800 (2575-4180) /uL [place] # (Auto) 300 (0-900) /uL Eos # (Auto) 0 (0-450) /uL Baso # (Auto) 100 (0-100) /uL Sodium 142 (137-145) mmol/L Potassium 3.3 L (3.4-5.1) mmol/L Chloride 100 (98-107) mmol/L Carbon Dioxide 28 (22-32) mmol/L BUN 11 (7-17) mg/dL Creatinine 0.63 (0.52-1.04) mg/dL Estimated GFR > 60 (>60) mL/min BUN/Creatinine Ratio 17.5 (6-22) Glucose 85 (70-100) mg/dL Calcium 9.4 (8.4-10.2) mg/dL Total Bilirubin 0.7 (0.2-1.3) mg/dL AST 30 (14-36) IU/L ALT 23 (<35) IU/L Alkaline Phosphatase 102 (38-126) U/L Total Protein 7.9 (6.3-8.2) g/dL Albumin 4.7 (3.5-5.0) g/dL Globulin 3.2 (1.7-4.1) g/dL Albumin/Globulin Ratio 1.5 (1.0-2.8) Lipase 28 (23-300) U/L Serum , Qual (Negative) Urine RBC (0-5/HPF) Urine WBC (0-5/HPF) Ur Squamous Epith Cells (0-5/HPF) Urine Bacteria (None) Urine Mucus (Negative) Ur Culture Indicated? Ethyl Alcohol ( - 10) mg/dL 09/10/22 09/10/22 09/10/22 Range/Units 18:26 18:26 19:20 WBC (4.5-11.0) X10^3/uL RBC (4.0-5.2) X10^6/uL Hgb (12.0-16.0) g/dL Hct (36-46) % MCV (80-100) fL MCH (26-34) PG MCHC (30-36) % RDW (11.6-14.8) % Plt Count (150-400) X10^3/uL Neut % (Auto) (50-75) % Lymph % (Auto) (25-40) % [place] % (Auto) (3-14) % Eos % (Auto) (2-4) % Baso % (Auto) (0-2) % Neut # (Auto) (4324-3161) /uL Lymph # (Auto) (1367-4729) /uL [place] # (Auto) (0-900) /uL Eos # (Auto) (0-450) /uL Baso # (Auto) (0-100) /uL Sodium (137-145) mmol/L Potassium (3.4-5.1) mmol/L Chloride (98-107) mmol/L Carbon Dioxide (22-32) mmol/L BUN (7-17) mg/dL Creatinine (0.52-1.04) mg/dL Estimated GFR (>60) mL/min BUN/Creatinine Ratio (6-22) Glucose (70-100) mg/dL Calcium (8.4-10.2) mg/dL Total Bilirubin (0.2-1.3) mg/dL AST (14-36) IU/L ALT (<35) IU/L Alkaline Phosphatase (38-126) U/L Total Protein (6.3-8.2) g/dL Albumin (3.5-5.0) g/dL Globulin (1.7-4.1) g/dL Albumin/Globulin Ratio (1.0-2.8) Lipase (23-300) U/L Serum , Qual Negative (Negative) Urine RBC 0-1/hpf (0-5/HPF) Urine WBC 0-1/hpf (0-5/HPF) Ur Squamous Epith Cells 1-5 /hpf (0-5/HPF) Urine Bacteria Few (2-10) H (None) Urine Mucus 1+ H (Negative) Ur Culture Indicated? Cult not indicated Ethyl Alcohol 159 H ( - 10) mg/dL Urine Dip Bedside Urine Glucose Negative Bedside Urine Bilirubin - Negative Bedside Urine Ketone +/- 5 Urine Specific [place] 1.015 Bedside Urine Occult Blood + Bedside Urine pH 6.0 Bedside Urine Protein - Negative Bedside Urine Urobilinogen - Negative Bedside Urine Nitrite - Negative Bedside Urine Leukocytes - Negative Esterase MDM Narrative Medical decision making narrative: Patient has a benign exam. After fluids and nausea medication she was able to tolerate oral intake. Her alcohol level was also elevated today. She does have a history of alcohol abuse. She also has a history of pancreatitis. She does not have lab evidence today of pancreatitis. I have low suspicion for an acute intra-abdominal surgical issue. I feel that we should hold on any radiologic studies for now. I have a very high suspicion that her symptoms are related to her drinking. Will discharge patient home with return precautions. She can fill the prescription for nausea medicine that she was prescribed yesterday. Discharge Plan Departure Patient Disposition: Home Clinical Impression: Alcohol intoxication, Nausea and vomiting Instructions: Alcohol Use Disorder, Nausea and Vomiting-Adult Activity Restrictions/Additional Instructions: I do recommend that you use the nausea medication as needed. Be sure that you were trying to increase your fluid intake by drinking small amounts at a time. I also recommend a bland diet. No driving for the next 24 hours or in the future if you drink alcohol. Contact your primary doctor for a follow-up. Prescriptions: No Action triamcinolone acetonide 0.1 % ointment 1 applic topical TID Qty: 80 0RF [UNKNOWN EYE DROP] Qty: 0 ACETAMINOPHEN (susp) (CHILDREN'S TYLENOL) 480 mg Qty: 0 Referrals: Miscellaneous,Doctor, MD [Primary Care Provider] - Stand Alone Forms: Patient Portal/API
[2022-09-10] MEDS: SODIUM CHLORIDE 0.9% 1,000 ML 1000 ML IV (19:03)
[2022-09-10] MEDS: KETOROLAC 30 MG/ML VIAL IV (19:04)
[2022-09-10] MEDS: ONDANSETRON 4 MG/2 ML INJ IV (19:04)
[2022-09-10 19:05] LABS: Add Manual Diff / Slide Review NO; Basophils Absolute Auto 100 /uL (0-100); Basophils Percent Auto 0.7 % (0-2); Eosinophils Absolute Auto 0 /uL (0-450); Eosinophils Percent Auto 0.5 % (2-4); Hematocrit 42.1 % (36-46); Hemoglobin 14.5 g/dL (12.0-16.0); Lymphocytes Absolute Auto 2800 /uL (1100-4500); Lymphocytes Percent Auto 29.2 % (25-40); Mean Corpuscular HGB Conc 34.4 % (30-36); Mean Corpuscular Hemoglobin 31.4 PG (26-34); Mean Corpuscular Volume 91.3 fL (80-100); Monocytes Absolute Auto 300 /uL (0-900); Monocytes Percent Auto 3.6 % (3-14); Neutrophils Absolute Auto 6300 /uL (1500-7000); Platelet Count 275 X10^3/uL (150-400); Red Blood Cell Count 4.61 X10^6/uL (4.0-5.2); Red Cell Distribution Width 13.3 % (11.6-14.8); White Blood Cell Count 9.5 X10^3/uL (4.5-11.0)
[2022-09-10 19:26] LABS: Alanine Aminotransferase 23 IU/L (<35); Albumin 4.7 g/dL (3.5-5.0); Albumin Globulin Ratio 1.5 (1.0-2.8); Alkaline Phosphatase 102 U/L (38-126); Aspartate Aminotransferase 30 IU/L (14-36); BUN Creatinine Ratio 17.5 (6-22); Bilirubin Total 0.7 mg/dL (0.2-1.3); Blood Urea Nitrogen 11 mg/dL (7-17); Calcium 9.4 mg/dL (8.4-10.2); Carbon Dioxide 28 mmol/L (22-32); Chloride 100 mmol/L (98-107); Estimated Glomerular Filt Rate > 60 mL/min (>60); Ethanol (ETOH) 159 mg/dL; Globulin 3.2 g/dL (1.7-4.1); Glucose 85 mg/dL (70-100); HEMOLYSIS < 15 (0-50); Potassium 3.3 mmol/L (3.4-5.1); Pregnancy Test Serum,Qual Negative (Negative); Sodium 142 mmol/L (137-145); Total Protein 7.9 g/dL (6.3-8.2)
[2022-09-10 19:34] LABS: Lipase 28 U/L (23-300)
[2022-09-10] MEDS: PANTOPRAZOLE 40 MG VIAL IV (20:00)
[2022-09-10 20:01] LABS: Bacteria Urine Few (2-10); Culture Indicated Urine Cult Not Indicated; Mucus Urine 1+ (Negative); RBC Urine 0-1/HPF (0-5/HPF); Squamous Epithelial Cell Urine 1-5 /HPF (0-5/HPF); WBC Urine 0-1/HPF (0-5/HPF)
[2022-09-10 20:04] VITALS: BP 130/64; PULSE 69; RESP 18; O2SAT 100
[2022-09-10] MEDS: ONDANSETRON 4 MG ODT PREPACK 1 BOTTLE MISC (20:46)
== END 2022-09-10 20:50 | disposition home or self-care (01) ==
PROVIDERS: Emergency Medicine; Emergency Provider Emergency Medicine
DX: F10.129 Alcohol abuse with intoxication, unspecified (principal); Y90.6 Blood alcohol level of 120-199 mg/100 ml; R11.2 Nausea with vomiting, unspecified; R51.9 Headache, unspecified
CPT/HCPCS: 36415; 80053; 80320; 81003; 81015; 83690; 84703; 85025; 87086; 96361; 96374; 96375; 99284; C9113; J1885; J2405

== ENCOUNTER 2022-09-14 09:24 | Emergency (ER) | payer OTHER, MEDICAID, SELFPAY ==
[2022-09-14 09:35] VITALS: BP 132/68; PULSE 95; RESP 16; TEMP 36.4; O2SAT 100; BMI 21.7
--- NOTE | 2022-09-14 09:36 | ED.GENADULT ---
HPI - General Adult General Chief complaint: Nausea/Vomiting/Diarrhea Stated complaint: can't hold anything down as Thursday, black diarrhe Time Seen by Provider: 09/14/22 09:26 Source: patient Mode of arrival: Ambulatory Limitations: no limitations History of Present Illness HPI narrative: Patient is a 46-year-old female. I evaluated her here in the emergency department a couple days ago for abdominal pain and vomiting. At that point she was intoxicated. She was able to tolerate oral intake after medications here in the ER. She had unremarkable labs. Was subsequently discharged home. Since that time she has been to another outside facility. She states that she received more medications and also had a CT scan. Was sent home with medications. She returns today stating that she continues to vomit. She states she has not been drinking alcohol. She also reports some dark-colored stool. No fevers. She states that she is still having some slight abdominal pain but it is not as bad today as what it has been. Related Data Home Medications Medication Instructions Recorded Confirmed ACETAMINOPHEN (susp) (CHILDREN'S 480 mg ##0 02/26/12 TYLENOL) [UNKNOWN EYE DROP] ##0 02/26/12 Previous Rx's Medication Instructions Recorded triamcinolone acetonide 0.1 % 1 applic topical TID #80 grams 09/10/21 topical ointment metoclopramide HCl 10 mg tablet 10 mg PO Q6H PRN nausea and 09/14/22 (Reglan) vomiting #20 tabs Allergies Allergy/AdvReac Type Severity Reaction Status Date / Time amoxicillin [From AUGMENTIN] Allergy Unknown Verified 09/14/22 09:39 cephalexin [CEPHALEXIN] Allergy Unknown Verified 09/14/22 09:39 clavulanic acid Allergy Unknown Verified 09/14/22 09:39 [From AUGMENTIN] Penicillins [PENICILLINS] Allergy Unknown Verified 09/14/22 09:39 Sulfa (Sulfonamide Allergy Unknown Verified 09/14/22 09:39 Antibiotics) [SULFA (SULFONAMIDE ANTIBIOTICS)] Review of Systems Constitutional Constitutional: Reports system reviewed and no additional complaints, except as documented Cardiovascular Cardiovascular: Reports system reviewed and no additional complaints, except as documented Respiratory Respiratory: Reports system reviewed and no additional complaints, except as documented Gastrointestinal Gastrointestinal: Reports system reviewed and no additional complaints, except as documented Musculoskeletal Musculoskeletal: Reports system reviewed and no additional complaints, except as documented Integumentary/Breasts Skin/Breast: Reports system reviewed and no additional complaints, except as documented Patient History Social History Smoking Status: Current every day smoker Smoking Status: Current every day smoker alcohol intake frequency: 3 or more drinks per day Substance Use Type: marijuana Exam Initial Vital Signs Initial Vital Signs: Vital Signs Temperature 97.6 F 09/14/22 09:35 Pulse Rate 95 H 09/14/22 09:35 Respiratory Rate 16 09/14/22 09:35 Blood Pressure 132/68 09/14/22 09:35 Pulse Oximetry 100 09/14/22 09:35 Oxygen Delivery Method Room Air 09/14/22 09:35 Const General: cooperative and No ill appearing HENMT Head: normal to inspection Resp Effort & Inspection: normal respiratory effort Auscultation: clear to auscultation bilaterally Cardio Rate: tachycardic Rhythm: regular rhythm GI Inspection: normal to inspection and non-distended Palpation: No firm, No guarding and No tender Skin General: no rashes or lesions noted Neuro General: patient alert, patient awake and moves all extremities Extrem General: normal to inspection and capillary refill normal Course Orders Ordered: ED Orders 09/14/22 09:55 Complete Blood Count AUTO DIFF Stat Comprehensive Metabolic Panel Stat Ethanol (ETOH) Stat Lipase Stat Test Serum,Qual Stat Discontinued Medications Sodium Chloride (Normal Saline 0.9%) 1,000 mls @ 1,000 mls/hr IV BOLUS ONE Stop: 09/14/22 10:25 Last Infusion: 09/14/22 10:51 Dose: 0 mls/hr Documented By: Admin: 09/14/22 10:01 Dose: 1,000 mls/hr Documented By: AMU Sodium Chloride (Normal Saline 0.9%) 1,000 mls @ 1,000 mls/hr IV BOLUS ONE Stop: 09/14/22 11:40 Last Infusion: 09/14/22 11:48 Dose: 0 mls/hr Documented By: Admin: 09/14/22 10:45 Dose: 1,000 mls/hr Documented By: MCKENNA Metoclopramide HCl (Metoclopramide 10 Mg/2 Ml Inj) 10 mg IV NOW ONE Stop: 09/14/22 09:27 Last Admin: 09/14/22 10:01 Dose: 10 mg Documented By: AMU Ondansetron HCl (Ondansetron 4 Mg/2 Ml Inj) 4 mg IV NOW ONE Stop: 09/14/22 10:39 Last Admin: 09/14/22 10:44 Dose: 4 mg Documented By: AMU Pantoprazole Sodium (Pantoprazole 40 Mg Vial) 40 mg IV NOW ONE Stop: 09/14/22 10:21 Last Admin: 09/14/22 10:44 Dose: 40 mg Documented By: AMU Vital Signs Vital signs: Vital Signs - 8 hr 09/14/22 09:35 09/14/22 11:13 09/14/22 11:48 Temperature 97.6 F Pulse Rate 95 H 74 67 Respiratory Rate 16 18 16 Blood Pressure 132/68 128/59 L 135/65 Pulse Oximetry 100 97 98 Oxygen Delivery Method Room Air Room Air Room Air Medical Decision Making Medical Records Medical records reviewed: Yes I reviewed the patient's medical records. Lab Data Lab results reviewed: Yes I reviewed the patient's lab results. 09/14/22 09:55 09/14/22 09:55 Labs: Lab Results 09/14/22 09/14/22 09/14/22 Range/Units 09:55 09:55 09:55 WBC 8.7 (4.5-11.0) X10^3/uL RBC 4.77 (4.0-5.2) X10^6/uL Hgb 15.0 (12.0-16.0) g/dL Hct 43.3 (36-46) % MCV 90.8 (80-100) fL MCH 31.4 (26-34) PG MCHC 34.6 (30-36) % RDW 13.4 (11.6-14.8) % Plt Count 255 (150-400) X10^3/uL Neut % (Auto) 69.7 (50-75) % Lymph % (Auto) 23.7 L (25-40) % [place] % (Auto) 5.6 (3-14) % Eos % (Auto) 0.6 L (2-4) % Baso % (Auto) 0.4 (0-2) % Neut # (Auto) 6100 (7124-5056) /uL Lymph # (Auto) 2100 (5581-9031) /uL [place] # (Auto) 500 (0-900) /uL Eos # (Auto) 100 (0-450) /uL Baso # (Auto) 0 (0-100) /uL Sodium 136 L (137-145) mmol/L Potassium 3.2 L (3.4-5.1) mmol/L Chloride 95 L (98-107) mmol/L Carbon Dioxide 31 (22-32) mmol/L BUN 10 (7-17) mg/dL Creatinine 0.65 (0.52-1.04) mg/dL Estimated GFR > 60 (>60) mL/min BUN/Creatinine Ratio 15.4 (6-22) Glucose 191 H D (70-100) mg/dL Calcium 9.4 (8.4-10.2) mg/dL Total Bilirubin 0.9 (0.2-1.3) mg/dL AST 34 (14-36) IU/L ALT 28 (<35) IU/L Alkaline Phosphatase 107 (38-126) U/L Total Protein 7.9 (6.3-8.2) g/dL Albumin 4.7 (3.5-5.0) g/dL Globulin 3.2 (1.7-4.1) g/dL Albumin/Globulin Ratio 1.5 (1.0-2.8) Lipase 42 (23-300) U/L Serum , Qual Negative (Negative) Ethyl Alcohol < 10 ( - 10) mg/dL MDM Narrative Medical decision making narrative: Patient once again presents today with abdominal pain and nausea. She was able to tolerate oral intake here in the ER after medications. She has Zofran at home and also Phenergan but this does not seem to be helping her. I will give a prescription for Reglan. She has a benign abdominal exam. I was able to review the ED notes from a couple days ago. She did have a CT scan of the abdomen pelvis which showed colitis. No indication for repeat scanning today. I do feel that she needs a follow-up most likely for colonoscopy and upper endoscopy. This does not need to happen emergently. She is not anemic. Heart rate improved with fluids. Will discharge patient home with return precautions. She expressed understanding and agreement. Patient is also currently on a proton pump inhibitor and also has Carafate prescribed her. We discussed the use of these medications. Discharge Plan Departure Patient Disposition: Home Clinical Impression: Nausea and vomiting Instructions: Nausea and Vomiting-Adult Activity Restrictions/Additional Instructions: I do recommend that you contact the general surgery department at the number provided below. You do need a follow-up with General surgery to discuss the indications for an upper endoscopy and colonoscopy. I recommend that you continue to abstain from the use of alcohol. Continue to take the prescriptions that were given to you that your last emergency department visit. I do recommend a bland diet. Also recommend that you tried to drink small amounts of fluid more frequently. Prescriptions: New metoclopramide HCl [Reglan] 10 mg tablet 10 mg PO Q6H PRN (Reason: nausea and vomiting) Qty: 20 0RF No Action triamcinolone acetonide 0.1 % ointment 1 applic topical TID Qty: 80 0RF [UNKNOWN EYE DROP] Qty: 0 ACETAMINOPHEN (susp) (CHILDREN'S TYLENOL) 480 mg Qty: 0 Referrals: Rolando Ocnonell MD [Physician] - Miscellaneous,MD Maggie [Primary Care Provider] - Stand Alone Forms: Patient Portal/API
[2022-09-14] MEDS: SODIUM CHLORIDE 0.9% 1,000 ML 1000 ML IV ×2 (10:01→10:45)
[2022-09-14] MEDS: METOCLOPRAMIDE 10 MG/2 ML INJ IV (10:01)
[2022-09-14 10:09] LABS: Add Manual Diff / Slide Review NO; Basophils Absolute Auto 0 /uL (0-100); Basophils Percent Auto 0.4 % (0-2); Eosinophils Absolute Auto 100 /uL (0-450); Eosinophils Percent Auto 0.6 % (2-4); Hematocrit 43.3 % (36-46); Lymphocytes Absolute Auto 2100 /uL (1100-4500); Lymphocytes Percent Auto 23.7 % (25-40); Mean Corpuscular HGB Conc 34.6 % (30-36); Mean Corpuscular Hemoglobin 31.4 PG (26-34); Mean Corpuscular Volume 90.8 fL (80-100); Monocytes Absolute Auto 500 /uL (0-900); Monocytes Percent Auto 5.6 % (3-14); Neutrophils Absolute Auto 6100 /uL (1500-7000); Neutrophils Percent Auto 69.7 % (50-75); Platelet Count 255 X10^3/uL (150-400); Red Blood Cell Count 4.77 X10^6/uL (4.0-5.2); Red Cell Distribution Width 13.4 % (11.6-14.8); White Blood Cell Count 8.7 X10^3/uL (4.5-11.0)
[2022-09-14 10:14] LABS: Alanine Aminotransferase 28 IU/L (<35); Albumin 4.7 g/dL (3.5-5.0); Albumin Globulin Ratio 1.5 (1.0-2.8); Alkaline Phosphatase 107 U/L (38-126); Aspartate Aminotransferase 34 IU/L (14-36); BUN Creatinine Ratio 15.4 (6-22); Bilirubin Total 0.9 mg/dL (0.2-1.3); Blood Urea Nitrogen 10 mg/dL (7-17); Calcium 9.4 mg/dL (8.4-10.2); Carbon Dioxide 31 mmol/L (22-32); Chloride 95 mmol/L (98-107); Estimated Glomerular Filt Rate > 60 mL/min (>60); Ethanol (ETOH) < 10 mg/dL; Globulin 3.2 g/dL (1.7-4.1); Glucose 191 mg/dL (70-100); HEMOLYSIS < 15 (0-50); Lipase 42 U/L (23-300); Potassium 3.2 mmol/L (3.4-5.1); Sodium 136 mmol/L (137-145); Total Protein 7.9 g/dL (6.3-8.2)
[2022-09-14 10:23] LABS: Pregnancy Test Serum,Qual Negative (Negative)
[2022-09-14] MEDS: ONDANSETRON 4 MG/2 ML INJ IV (10:44)
[2022-09-14] MEDS: PANTOPRAZOLE 40 MG VIAL IV (10:44)
[2022-09-14 11:13] VITALS: BP 128/59; PULSE 74; RESP 18; O2SAT 97
[2022-09-14 11:48] VITALS: BP 135/65; PULSE 67; RESP 16; O2SAT 98
[2022-09-14] MEDS: POTASSIUM CHLORIDE 20 MEQ/15 ML UDC PO (12:02)
== END 2022-09-14 12:08 | disposition home or self-care (01) ==
PROVIDERS: Emergency Provider Emergency Medicine
DX: R11.2 Nausea with vomiting, unspecified (principal); R10.9 Unspecified abdominal pain
CPT/HCPCS: 36415; 80053; 80320; 83690; 84703; 85025; 96361; 96374; 96375; 99284; C9113; J2405; J2765

== ENCOUNTER 2022-09-29 06:38 | Day surgery (SDC) | payer OTHER, MEDICAID, SELFPAY ==
--- NOTE | 2022-09-29 | PATH_ITS ---
[facility] Accession Number: [id number] No. of containers..01 Tissue . 01 Material submitted: . rectum - RECTAL POLYPS . 01 Diagnosis: Rectal Polyps: Tubular adenoma and hyperplastic polyps. [facility] 10/02/2022 1330 Local . 01 Electronically signed: . Kory Carlos MD, PhD, Pathologist NPI- [id number] . 01 Gross description: . RECTAL POLYPS: Received in formalin is multiple fragment(s) of franco, soft tissue measuring 0.7 x 0.4 x 0.3 cm in aggregate submitted entirely in 1 cassette(s) /[facility] 10/01/2022 1245 Local . 01 Pathologist provided ICD-10: D12.8 . 01 CPT . 096414 Specimen Comment: A courtesy copy of this report has been sent to [phone] Performed at: 01 [facility] [address] [place] [address], [place], [place] [id number] MD Konstantin Ocasio MD Phone: [phone]
[2022-09-29 07:09] VITALS: BP 113/64; PULSE 89; RESP 18; TEMP 36.6; O2SAT 99; BMI 22.4
[2022-09-29] MEDS: LACTATED RINGERS 1,000 ML 42 ML IV (07:31)
--- NOTE | 2022-09-29 07:34 | PM.HP.1 ---
History of Present Illness History of Present Illness Date Patient Seen: 09/29/22 Time Patient Seen: 07:34 Chief complaint: SDC Narrative: unexplained nausea and vomitting for weeks. No family history for colon cancer [facility] Social History marital status: unmarried,single household members: friend(s) lives independently: Yes occupational status: employed Smoking Status: Current every day smoker alcohol intake: former substance use type: marijuana Meds Home Medications and Allergies Home Medications Medication Instructions Recorded Confirmed Type multivitamin with minerals-folic tab PO 09/18/22 09/18/22 History acid 200 mcg chewable tablet (Women's Multivitamin Gummies) omeprazole 40 mg capsule,delayed 40 mg PO DAILY 09/18/22 09/29/22 History release ondansetron [Zofran ODT] PO PRN Nausea 09/18/22 09/18/22 History sucralfate 1 gram tablet 1 g PO QID 09/18/22 09/18/22 History trazodone PO 09/18/22 09/18/22 History Allergies Allergy/AdvReac Type Severity Reaction Status Date / Time amoxicillin [From AUGMENTIN] Allergy Unknown Verified 09/29/22 07:05 cephalexin [CEPHALEXIN] Allergy Unknown Verified 09/29/22 07:05 clavulanic acid Allergy Unknown Verified 09/29/22 07:05 [From AUGMENTIN] Penicillins [PENICILLINS] Allergy Unknown Verified 09/29/22 07:05 Sulfa (Sulfonamide Allergy Unknown Verified 09/29/22 07:05 Antibiotics) [SULFA (SULFONAMIDE ANTIBIOTICS)] Review of Systems Review of Systems ROS: Yes All systems reviewed with the patient and are negative except as otherwise documented Exam Vital Signs (past 8 hours): - 09/29/22 07:09 Temperature 97.9 F Pulse Rate 89 Respiratory Rate 18 Blood Pressure 113/64 Pulse Oximetry 99 Oxygen Delivery Method Room Air Oxygen Flow Rate 0 Oxygen Delivery Method Room Air Oxygen Flow Rate 0 Const General: cooperative and healthy appearing Nutritional Appearance: average body habitus HENMT Head: normocephalic and atraumatic Eyes General: appearance normal, both eyes and all related structures Neck Neck: trachea midline Resp Effort & Inspection: normal respiratory effort and able to speak in complete sentences Cardio Rate: regular rate Rhythm: regular rhythm GI Inspection: normal to inspection Palpation: soft Skin General: elasticity normal Neuro General: patient alert, patient awake and patient oriented x3 Psych Appearance: grossly normal Judgment: judgment good Assessment & Plan Assessment & Plan narrative: persistent nausea and vomiting. Plan: EGD and screening colonoscopy with general anesthesia Time Spent With Patient Time with patient: less than 30 minutes
[2022-09-29 08:10] VITALS: BP 81/37; PULSE 69; RESP 16; TEMP 35.8; O2SAT 97
[2022-09-29] MEDS: SCOPOLAMINE 1 PATCH TOP (08:12)
--- NOTE | 2022-09-29 08:12 | P.OP.EGD&C_ITS ---
Operative Date/Time/Diagnoses Date of procedure: 09/29/22 Time of procedure: 08:12 Pre-op diagnosis: Nausea and vomiting. screening colonoscopy. Post-op diagnosis: same Procedure & Clinicians Study performed: Diagnostic EGD, colonoscopy with polypectomy Same procedure as scheduled: Yes Indications: Nausea vomiting, screening colonoscopy Surgeon: Tabitha Lo Procedure Notes Procedure in detail: Preop diagnosis: Nausea vomiting and screening colonoscopy Postop diagnosis: Same Operative procedure: EGD and colonoscopy with polypectomy Anesthetic: General Surgeon: Simin Lo MD Findings: EGD demonstrated a normal esophagus, stomach, duodenum. There was however absence of peristalsis in the stomach, and duodenum. Small hiatal hernia on retroflex. Colonoscopy demonstrated to polyps in the rectum both measuring 4 mm in size. Taken with cold forceps. Otherwise normal exam Procedure: Patient placed in lateral position. I began with EGD inserting scope into the esophagus under anesthetic, entering into the stomach insufflated and identifying the pylorus. A intubated into the duodenum. Insufflation and extraction of the scope including retroflexed and the above findings. Colonoscopy was performed under the same anesthetic, again in the lateral position. Rectal exam performed showing normal tone no masses. Colonoscope inserted into the rectum and advanced to ileocecal valve with minimal difficulty . Insufflation extraction of the scope including retroflex in the rectum had the above findings. Impression: Gastroparesis of unknown etiology. Lack of motility involved esophagus, stomach and duodenum. There was retained food particles within the stomach after being NPO for greater than 8 hours. Colonoscopy demonstrated 2 small polyps both taken with cold forceps. Pathology pending. Plan: Regarding gastroparesis, scopolamine patch for symptoms. Erythromycin 500 mg p.o. b.i.d. for 5 days to improve motility. If this persist recommend she follow up with a [facility]. In addition there was a very small hiatal hernia demonstrated on EGD. With regards to colon she now has demonstrated the ability to make colon polyps and should have a colonoscopy every 5 years. Findings: hiatal hernia and polyp Specimen(s): other (rectal polyp x2) Post-procedure Recommendations: Colonscopy in 5 years Follow up: as needed Disposition: PACU
[2022-09-29 08:15] VITALS: BP 85/37; PULSE 65; RESP 14; TEMP 36.1; O2SAT 98
[2022-09-29 08:20] VITALS: BP 113/58; PULSE 75; RESP 16; TEMP 36.1; O2SAT 100
[2022-09-29 08:25] VITALS: BP 112/71; PULSE 79; RESP 14; TEMP 35.8; O2SAT 100
[2022-09-29 08:53] VITALS: BP 102/60; PULSE 66; RESP 17; TEMP 35.5; O2SAT 100
--- NOTE | 2022-09-29 09:03 | SUR.PHASEII ---
Clarified clear liquid diet with Dr. Lo. Diet is recommendation due to slow gastric emptying. Patient notified of clarification by phone.
== END 2022-09-29 08:50 | disposition home or self-care (01) ==
PROVIDERS: PCP Nurse Practitioner Family; Referring Provider Surgery; Visit Provider Surgery
PROC: 0DJ08ZZ Inspection of Upper Intestinal Tract, Via Natural or Artificial Opening Endoscopic (ICD-10-PCS; CPT 43235; principal; 2022-09-29 07:45)
PROC: 0DJD8ZZ Inspection of Lower Intestinal Tract, Via Natural or Artificial Opening Endoscopic (ICD-10-PCS; CPT 45378; 2022-09-29 07:45)
DX: D12.8 Benign neoplasm of rectum (principal); Z12.11 Encounter for screening for malignant neoplasm of colon; R11.2 Nausea with vomiting, unspecified
CPT/HCPCS: 45380; 43239; J2704

== ENCOUNTER 2023-04-05 18:55 | Emergency (ER) | payer OTHER, MEDICAID, SELFPAY ==
[2023-04-05] VITALS (8 sets, daily range): BP systolic 121–136; BP diastolic 58–81; PULSE 74–86; RESP 16–18; TEMP 36.5–36.8; O2SAT 96–135; BMI 25.7
--- NOTE | 2023-04-05 19:27 | DI.RAD.S_ITS ---
PROCEDURE: XR CHEST 1V INDICATIONS: fever cough TECHNIQUE: One view of the chest was acquired. COMPARISON: [facility], CT, CT ABDOMEN PELVIS WITH CONTRAST, 03/30/2023, 3:21. , CR, XR CHEST 1V, 03/31/2020, 17:43. FINDINGS: Surgical changes and devices: None. Lungs and pleura: Lungs are clear. No pleural effusions or pneumothorax. Mediastinum: Mediastinal contours appear normal. Heart size is normal. Bones and chest wall: No suspicious bony lesions. Overlying soft tissues appear unremarkable. IMPRESSION: No acute cardiopulmonary abnormality is seen. Dictated by: Pineda Dockery M.D. on 04/05/2023 at 20:22 Approved by: Pineda Dockery M.D. on 04/05/2023 at 20:23
--- NOTE | 2023-04-05 20:00 | ED.ABDPAIN ---
HPI - Abdominal Pain General Chief Complaint: Abdominal Pain Stated Complaint: FLU LIKE SYMPTOMS, HYSYTERECTOMY ON 03/20 Time Seen by Provider: 04/05/23 19:26 Source: patient Mode of arrival: Ambulatory History of Present Illness HPI narrative: Patient 47-year-old female history of alcohol abuse hysterectomy March 20 presenting today with upper respiratory like symptoms ongoing abdominal pain. She was seen and evaluated at [facility] March 30 for abdominal pain. It was thought that she might have some sort of infection she has been on doxycycline Flagyl and given oxycodone. Today she reports with continued abdominal pain but also upper respiratory symptoms. She reports headache mild sore throat some cough. She has been taking Tylenol ibuprofen around the clock since her surgery and has not had a fever. Records have been requested from [facility] Related Data Home Medications Medication Instructions Recorded Confirmed multivitamin with minerals-folic tab PO 09/18/22 09/18/22 acid 200 mcg chewable tablet (Women's Multivitamin Gummies) omeprazole 40 mg capsule,delayed 40 mg PO DAILY 09/18/22 09/29/22 release ondansetron [Zofran ODT] PO PRN Nausea 09/18/22 09/18/22 sucralfate 1 gram tablet 1 g PO QID 09/18/22 09/18/22 trazodone PO 09/18/22 09/18/22 Previous Rx's Medication Instructions Recorded scopolamine base 1 mg over 3 days 1 patch transdermal Q3D PRN nausea 09/29/22 transdermal patch and vomiting #4 ea erythromycin 250 mg tablet,delayed 500 mg (2 x 250 mg) PO BID #20 tabs 09/30/22 release Allergies Allergy/AdvReac Type Severity Reaction Status Date / Time amoxicillin [From AUGMENTIN] Allergy Unknown Verified 04/05/23 18:58 cephalexin [CEPHALEXIN] Allergy Unknown Verified 04/05/23 18:58 clavulanic acid Allergy Unknown Verified 04/05/23 18:58 [From AUGMENTIN] Penicillins [PENICILLINS] Allergy Unknown Verified 04/05/23 18:58 Sulfa (Sulfonamide Allergy Unknown Verified 04/05/23 18:58 Antibiotics) [SULFA (SULFONAMIDE ANTIBIOTICS)] Patient History Social History marital status: unmarried,single household members: friend(s) lives independently: Yes occupational status: employed Smoking Status: Current every day smoker alcohol intake: former substance use type: marijuana Smoking Status: Current every day smoker alcohol intake frequency: 3 or more drinks per day Substance Use Type: marijuana Exam Initial Vital Signs Initial Vital Signs: Vital Signs Temperature 98.3 F 04/05/23 18:59 Pulse Rate 84 04/05/23 18:59 Respiratory Rate 18 04/05/23 18:59 Blood Pressure 136/75 04/05/23 18:59 Pulse Oximetry 97 04/05/23 18:59 Oxygen Delivery Method Room Air 04/05/23 18:59 GENERAL: Alert 47-year-old female not feel well and in no acute distress. HEENT: Head atraumatic,EOMI, pupils reactive, face symmetric, moist mucous membranes PHARYNX: No erythema, no tonsillar exudate, no cervical lymphadenopathy CARDIOVASCULAR: Regular rate and rhythm without murmurs, rubs or gallops. RESPIRATORY: Breath sounds equal bilaterally, no wheezes rales or rhonchi. ABDOMEN: Soft, nontender. Normoactive bowel sounds all 4 quadrants. No guarding or rebound. Mild tenderness no guarding no rebound no distention EXTREMITIES: Normal range of motion, no clubbing or edema. Neurovascularly intact NEUROLOGICAL: Alert and oriented x4.Normal gait and speech. SKIN: Warm, dry, no laceration, no petechiae, no rashes or lesions. Course Orders Ordered: ED Orders 04/05/23 19:27 Chest [XR chest 1V] Stat 04/05/23 19:51 CBC Auto Diff [Complete Blood Count AUTO DIFF] Stat CMP [Comprehensive Metabolic Panel] Stat Covid-19 + FLU A/B + RSV - PCR Stat 04/05/23 20:43 CT abdomen pelvis w con Stat Discontinued Medications Sodium Chloride (Normal Saline 0.9%) 1,000 mls @ 1,000 mls/hr IV BOLUS ONE Stop: 04/05/23 22:22 Last Admin: 04/05/23 21:51 Dose: Not Given Documented By: SB Ketorolac Tromethamine (Ketorolac 30 Mg/Ml Vial) 15 mg IV NOW ONE Stop: 04/05/23 20:20 Last Admin: 04/05/23 21:09 Dose: Not Given Documented By: KB Morphine Sulfate (Morphine 4 Mg/Ml Inj) 4 mg IV NOW ONE Stop: 04/05/23 20:45 Last Admin: 04/05/23 20:51 Dose: 4 mg Documented By: DINAH Vital Signs Vital signs: Vital Signs - 8 hr 04/05/23 18:59 04/05/23 19:31 04/05/23 19:35 Temperature 98.3 F Pulse Rate 84 Respiratory Rate 18 Blood Pressure 136/75 130/81 121/58 L Pulse Oximetry 97 Oxygen Delivery Method Room Air 04/05/23 19:36 04/05/23 21:03 04/05/23 21:03 Temperature Pulse Rate 86 80 Respiratory Rate 16 Blood Pressure 124/79 Pulse Oximetry 96 96 Oxygen Delivery Method Room Air 04/05/23 21:33 04/05/23 21:34 04/05/23 21:34 Temperature Pulse Rate 74 Respiratory Rate 16 Blood Pressure 128/68 Pulse Oximetry 100 98 Oxygen Delivery Method Room Air 04/05/23 21:45 Temperature 97.7 F Pulse Rate 74 Respiratory Rate 18 Blood Pressure 135/74 Pulse Oximetry 135 H Oxygen Delivery Method Room Air MDM - Abdominal Pain Lab Data 04/05/23 19:51 04/05/23 19:51 Labs: Lab Results 04/05/23 Range/Units 19:51 WBC 9.0 (4.5-11.0) X10^3/uL RBC 4.26 (4.0-5.2) X10^6/uL Hgb 13.1 (12.0-16.0) g/dL Hct 39.0 (36-46) % MCV 91.6 (80-100) fL MCH 30.7 (26-34) PG MCHC 33.5 (30-36) % RDW 12.2 (11.6-14.8) % Plt Count 306 (150-400) X10^3/uL Neut % (Auto) 59.7 (50-75) % Lymph % (Auto) 29.6 (25-40) % [place] % (Auto) 7.2 (3-14) % Eos % (Auto) 2.1 (2-4) % Baso % (Auto) 1.4 (0-2) % Neut # (Auto) 5400 (8941-4845) /uL Lymph # (Auto) 2700 (3750-0027) /uL [place] # (Auto) 700 (0-900) /uL Eos # (Auto) 200 (0-450) /uL Baso # (Auto) 100 (0-100) /uL Sodium 140 (137-145) mmol/L Potassium 3.5 (3.4-5.1) mmol/L Chloride 105 (98-107) mmol/L Carbon Dioxide 25 (22-32) mmol/L BUN 7 (7-17) mg/dL Creatinine 0.50 L (0.52-1.04) mg/dL Estimated GFR > 60 (>60) mL/min BUN/Creatinine Ratio 14.0 (6-22) Glucose 129 H (70-100) mg/dL Calcium 9.5 (8.4-10.2) mg/dL Total Bilirubin 0.3 (0.2-1.3) mg/dL AST 32 (14-36) IU/L ALT 29 (<35) IU/L Alkaline Phosphatase 84 (38-126) U/L Total Protein 7.1 (6.3-8.2) g/dL Albumin 3.9 (3.5-5.0) g/dL Globulin 3.2 (1.7-4.1) g/dL Albumin/Globulin Ratio 1.2 (1.0-2.8) SARS-CoV-2 (PCR) Negative (Negative) Influenza A (RT-PCR) Flu a positive H (NEGATIVE) Influenza B (RT-PCR) Flu b negative (NEGATIVE) RSV (PCR) Negative (Negative) Point of care testing: Point of Care Testing Test Results Negative Urine Dip Bedside Urine Glucose Negative Bedside Urine Bilirubin - Negative Bedside Urine Ketone - Negative Urine Specific [place] 1.005 Bedside Urine Occult Blood + Bedside Urine pH 7.0 Bedside Urine Protein - Negative Bedside Urine Urobilinogen - Negative Bedside Urine Nitrite - Negative Bedside Urine Leukocytes + [address] scan - abdomen/pelvis: Radiologist's Impression: PROCEDURE: CT ABDOMEN PELVIS W CON INDICATIONS: pain post hysterectomy ? abscess on ct 03/30 TECHNIQUE: After the administration of intravenous contrast, axial sections acquired from the lung bases to the pubic symphysis. Coronal and sagittal reformats were performed. For radiation dose reduction, the following was used: automated exposure control, adjustment of mA and/or kV according to patient size. COMPARISON: [facility], CT, CT ABDOMEN PELVIS WITH CONTRAST, 03/30/2023, 3:21. [facility], CT, CT ABDOMEN PELVIS W CON, 12/23/2021, 19:27. FINDINGS: Image quality: Diagnostic. Lower Chest: Small hiatal hernia. ABDOMEN: Liver: No solid mass. Gallbladder: No radiopaque gallstones or wall thickening. Biliary ducts: No biliary dilation. Pancreas: No ductal dilation. Spleen: Size is within normal limits. Adrenal Glands: No adrenal nodules. Kidneys and Ureters: No hydronephrosis. No solid mass. No complex renal cystic lesion which requires follow up. Stomach and Bowel: Normal colonic caliber, without significant wall thickening. Normal appendix. Moderate colonic stool load. Peritoneum: No abnormal intraperitoneal fluid. No free air. Ventral Wall: No hernia. Abdominal Nodes: No retroperitoneal or mesenteric adenopathy by size criteria. Vessels: Aorta and inferior vena cava are normal in size. PELVIS: Pelvic Organs: Hysterectomy. Tiny residual hypoattenuation at the vaginal cuff measuring 1 cm (series 2, image 81). Otherwise, the pelvic abscess has resolved. Bladder: Unremarkable. Pelvic Nodes: No enlarged lymph nodes. Miscellaneous: No inguinal hernias are seen. Bones: No aggressive osseous abnormality. IMPRESSION: Trace residual hypoattenuation at the vaginal cuff measuring 1 cm. Otherwise, the pelvic abscess has resolved. Dictated by: Ryan Kam M.D. on 04/05/2023 at 21:03 MDM Narrative Medical decision making narrative: Patient 47-year-old female history of recent hysterectomy presents today with ongoing abdominal pain headache sore throat and upper respiratory like symptoms. Vitals are stable. Records from [facility] happened received and reviewed. It does appear that she had leukocytosis of [address] on March 30 did show a probable abscess at the vaginal cuff. Today CT shows improvement with abscess. There is no leukocytosis. She is positive for influenza A likely causing her upper respiratory like symptoms. She is taking Tylenol and ibuprofen around the clock she was on her Toradol she did not want Toradol. Some abdominal pain she was given some morphine. This time she does not require antibiotics for influenza pelvic abscess has resolved. She is to finish the antibiotic course that she is already on. Blood work is reviewed and overall reassuring Supportive care only Discharge Plan Departure Patient Disposition: Home Clinical Impression: Influenza A Instructions: DI for Influenza -- Adult Activity Restrictions/Additional Instructions: *You have been diagnosed with influenza a *What to do: At this time you have influenza which is likely causing fever body aches and headache. Abscess and abdominal infection has resolved. Blood work is overall reassuring. Recommend that you follow-up with surgery for ongoing pain and discomfort *Continue to take medications as directed *Follow up with your primary care provider in 2-3 days or call [phone] *Return to ER if you should have inability to tolerate fluids dizziness passing or any new, worsening or concerning symptoms Prescriptions: No Action erythromycin 250 mg tablet,delayed release (DR/EC) 500 mg PO BID Qty: 20 0RF trazodone PO ondansetron [Zofran ODT] PO PRN (Reason: Nausea) sucralfate 1 gram tablet 1 g PO QID omeprazole 40 mg capsule,delayed release(DR/EC) 40 mg PO DAILY Women's Multivitamin Gummies 200 mcg tablet,chewable PO scopolamine base 1 mg over 3 days patch 3 day 1 patch transdermal Q3D PRN (Reason: nausea and vomiting) Qty: 4 0RF Referrals: Olivia Jarquin ARNP [Primary Care Provider] - Stand Alone Forms: Patient Portal/API
[2023-04-05 20:06] LABS: Add Manual Diff / Slide Review NO; Basophils Absolute Auto 100 /uL (0-100); Basophils Percent Auto 1.4 % (0-2); Eosinophils Absolute Auto 200 /uL (0-450); Eosinophils Percent Auto 2.1 % (2-4); Hemoglobin 13.1 g/dL (12.0-16.0); Lymphocytes Absolute Auto 2700 /uL (1100-4500); Lymphocytes Percent Auto 29.6 % (25-40); Mean Corpuscular HGB Conc 33.5 % (30-36); Mean Corpuscular Hemoglobin 30.7 PG (26-34); Mean Corpuscular Volume 91.6 fL (80-100); Monocytes Absolute Auto 700 /uL (0-900); Monocytes Percent Auto 7.2 % (3-14); Neutrophils Absolute Auto 5400 /uL (1500-7000); Neutrophils Percent Auto 59.7 % (50-75); Platelet Count 306 X10^3/uL (150-400); Red Blood Cell Count 4.26 X10^6/uL (4.0-5.2); Red Cell Distribution Width 12.2 % (11.6-14.8)
[2023-04-05 20:11] LABS: Alanine Aminotransferase 29 IU/L (<35); Albumin 3.9 g/dL (3.5-5.0); Albumin Globulin Ratio 1.2 (1.0-2.8); Alkaline Phosphatase 84 U/L (38-126); Aspartate Aminotransferase 32 IU/L (14-36); Bilirubin Total 0.3 mg/dL (0.2-1.3); Blood Urea Nitrogen 7 mg/dL (7-17); Calcium 9.5 mg/dL (8.4-10.2); Carbon Dioxide 25 mmol/L (22-32); Chloride 105 mmol/L (98-107); Estimated Glomerular Filt Rate > 60 mL/min (>60); Globulin 3.2 g/dL (1.7-4.1); Glucose 129 mg/dL (70-100); HEMOLYSIS 37 (0-50); Potassium 3.5 mmol/L (3.4-5.1); Sodium 140 mmol/L (137-145); Total Protein 7.1 g/dL (6.3-8.2)
--- NOTE | 2023-04-05 20:43 | DI.CT.S_ITS ---
PROCEDURE: CT ABDOMEN PELVIS W CON INDICATIONS: pain post hysterectomy ? abscess on ct 03/30 TECHNIQUE: After the administration of intravenous contrast, axial sections acquired from the lung bases to the pubic symphysis. Coronal and sagittal reformats were performed. For radiation dose reduction, the following was used: automated exposure control, adjustment of mA and/or kV according to patient size. COMPARISON: [facility], CT, CT ABDOMEN PELVIS WITH CONTRAST, 03/30/2023, 3:21. [facility], CT, CT ABDOMEN PELVIS W CON, 12/23/2021, 19:27. FINDINGS: Image quality: Diagnostic. Lower Chest: Small hiatal hernia. ABDOMEN: Liver: No solid mass. Gallbladder: No radiopaque gallstones or wall thickening. Biliary ducts: No biliary dilation. Pancreas: No ductal dilation. Spleen: Size is within normal limits. Adrenal Glands: No adrenal nodules. Kidneys and Ureters: No hydronephrosis. No solid mass. No complex renal cystic lesion which requires follow up. Stomach and Bowel: Normal colonic caliber, without significant wall thickening. Normal appendix. Moderate colonic stool load. Peritoneum: No abnormal intraperitoneal fluid. No free air. Ventral Wall: No hernia. Abdominal Nodes: No retroperitoneal or mesenteric adenopathy by size criteria. Vessels: Aorta and inferior vena cava are normal in size. PELVIS: Pelvic Organs: Hysterectomy. Tiny residual hypoattenuation at the vaginal cuff measuring 1 cm (series 2, image 81). Otherwise, the pelvic abscess has resolved. Bladder: Unremarkable. Pelvic Nodes: No enlarged lymph nodes. Miscellaneous: No inguinal hernias are seen. Bones: No aggressive osseous abnormality. IMPRESSION: Trace residual hypoattenuation at the vaginal cuff measuring 1 cm. Otherwise, the pelvic abscess has resolved. Dictated by: Ryan Kam M.D. on 04/05/2023 at 21:03 Approved by: Ryan Kam M.D. on 04/05/2023 at 21:06
[2023-04-05 20:45] LABS: Influenza A - CEPHEID Flu A POSITIVE (NEGATIVE); Influenza B - CEPHEID Flu B NEGATIVE (NEGATIVE); Respiratory Syncytial Virus Negative (Negative)
[2023-04-05] MEDS: MORPHINE 4 MG/ML INJ IV (20:51)
[2023-04-05 21:13] LABS: COVID-19 CEPHEID 4-PLEX PCR Negative (Negative)
== END 2023-04-05 21:51 | disposition home or self-care (01) ==
PROVIDERS: Emergency Provider Emergency Medicine; PCP Nurse Practitioner Family
DX: J10.1 Influenza due to other identified influenza virus with other respiratory manifestations (principal); R10.9 Unspecified abdominal pain; Z20.822 Contact with and (suspected) exposure to COVID-19
CPT/HCPCS: 0241U; 36415; 71045; 74177; 80053; 81003; 81025; 85025; 96374; 99284; 99285; J2270; Q9967

== ENCOUNTER 2024-02-09 18:13 | Emergency (ER) | payer OTHER, MEDICAID, SELFPAY ==
[2024-02-09 18:20] VITALS: BP 113/67; PULSE 102; RESP 16; TEMP 36.6; O2SAT 98; BMI 24.7
[2024-02-09 18:55] LABS: Add Manual Diff / Slide Review NO; Basophils Absolute Auto 0 /uL (0-100); Basophils Percent Auto 0.5 % (0-2); Eosinophils Absolute Auto 100 /uL (0-450); Eosinophils Percent Auto 1.8 % (2-4); Hematocrit 43.9 % (36-46); Hemoglobin 14.7 g/dL (12.0-16.0); Lymphocytes Absolute Auto 3100 /uL (1100-4500); Lymphocytes Percent Auto 47.7 % (25-40); Mean Corpuscular HGB Conc 33.6 % (30-36); Mean Corpuscular Hemoglobin 31.5 PG (26-34); Mean Corpuscular Volume 93.9 fL (80-100); Monocytes Absolute Auto 500 /uL (0-900); Monocytes Percent Auto 7.7 % (3-14); Neutrophils Absolute Auto 2700 /uL (1500-7000); Neutrophils Percent Auto 42.3 % (50-75); Platelet Count 290 X10^3/uL (150-400); Red Blood Cell Count 4.67 X10^6/uL (4.0-5.2); Red Cell Distribution Width 14.3 % (11.6-14.8); White Blood Cell Count 6.4 X10^3/uL (4.5-11.0)
[2024-02-09 19:04] LABS: Alanine Aminotransferase 63 IU/L (<35); Albumin 4.7 g/dL (3.5-5.0); Albumin Globulin Ratio 1.6 (1.0-2.8); Alkaline Phosphatase 86 U/L (38-126); Aspartate Aminotransferase 66 IU/L (14-36); BUN Creatinine Ratio 14.3 (6-22); Bilirubin Total 0.4 mg/dL (0.2-1.3); Blood Urea Nitrogen 9 mg/dL (7-17); Calcium 9.9 mg/dL (8.4-10.2); Carbon Dioxide 23 mmol/L (22-32); Chloride 107 mmol/L (98-107); Estimated Glomerular Filt Rate > 60 mL/min (>60); Globulin 2.9 g/dL (1.7-4.1); Glucose 165 mg/dL (70-100); HEMOLYSIS < 15 (0-50); Lipase 60 U/L (23-300); Potassium 3.5 mmol/L (3.4-5.1); Sodium 144 mmol/L (137-145); Total Protein 7.6 g/dL (6.3-8.2)
--- NOTE | 2024-02-09 21:45 | PC.NURSE ---
Patient requesting to have IV removed so that she can leave.
== END 2024-02-09 21:45 | disposition left against medical advice (07) ==
PROVIDERS: Emergency Provider Emergency Medicine; PCP Nurse Practitioner Family
DX: R10.9 Unspecified abdominal pain (principal); Z87.19 Personal history of other diseases of the digestive system
CPT/HCPCS: 36415; 80053; 81003; 83690; 85025; 99284